=== PATIENT | male | born 1950 | race Caucasian/White ===

== ENCOUNTER 2022-06-15 01:48 | Inpatient (IN) | payer OTHER ==
[~2022-06-15] VITALS: Ht 175.3 cm; Wt 62.6 kg
[2022-06-15 01:49] VITALS: BP 141/76
--- NOTE | 2022-06-15 01:49 | NUR ---
PT PILY ALS. TAKEN TO BED 2
[2022-06-15] MEDS ORDERED: NACL 0.9% 1,000 ML IV ONE (02:00)
[2022-06-15] MEDS ORDERED: AMPICILLIN/SULBACTAM 3 GM in NACL 0.9% 100 ML IV ONE (02:00)
--- NOTE | 2022-06-15 02:01 | NUR ---
ERM MODE BEDSIDE EXAMINING PT
--- NOTE | 2022-06-15 02:06 | NUR ---
ANIMAL ATTENDANT AND XRAY AT BEDSIDE
--- NOTE | 2022-06-15 02:08 | NUR ---
72 Y/O MALE BIBA FROM [facility], C/ [facility] S/P HYPOGLYCEMIA SINCE 0100 TODAY. FACILITY FOUND PT ALOC AND BGL OF 38. [facility] GAVE UNKNOWN AMOUNT OF GLUCAGON, EMS REASSESSED BGL AT 58. SKIN IS PALE/WARM/DRY. DENIES N/V/D, COUGH, FEVER, SOB, OR CP. A/OX4, GCS-14 (DEMENTIA); NON AMBULATORY WEAK WITH DIABETIC WOUNDS TO BOTH LOWER EXTREMETIES. Addendum: 06/15/22 at 0714 by [email or web address] HX: BPH, CELLULITIS, COPD, DEMENTIA, NEUROPATHY, OSTEOARTHRITIS, DM TYPE 2, CEREBRAL INFARCTION, HYPERLIPIDEMIA
[2022-06-15 02:13] LABS: BASOPHILS % (AUTO) 0.5 % (0.0-2.0); EOSINOPHILS # (AUTO) 0.1 K/uL (0-0.4); EOSINOPHILS % (AUTO) 1.5 % (0.0-4.0); HEMOGLOBIN 11.5 g/dL (12.0-18.0); LYMPHOCYTES # (AUTO) 0.7 K/uL (2.0-11.5); LYMPHOCYTES % (AUTO) 15.3 % (20.5-51.1); MEAN CORPUSCULAR HEMOGLOBIN 30 pg (27-31); MEAN CORPUSCULAR HGB CONC 34 g/dL (33-37); MEAN CORPUSCULAR VOLUME 89.6 fL (80-94); MONOCYTES # (AUTO) 0.3 K/uL (0.8-1.0); MONOCYTES % (AUTO) 7.1 % (1.7-9.3); NEUTROPHILS # (AUTO) 3.4 K/uL (1.8-7.7); NEUTROPHILS % (AUTO) 75.6 % (42.2-75.2); PLATELET COUNT (AUTO) 142 K/uL (140-450); RED CELL DISTRIBUTION WIDTH 13.9 % (11.6-13.7); WHITE BLOOD COUNT (AUTO) 4.6 K/uL (4.8-10.8)
[2022-06-15 02:38] LABS: ALBUMIN 3.6 g/dL (3.4-5.0); ANION GAP 10.1 (8-16); ASPARTATE AMINOTRANSFERASE 26 U/L (15-37); CARBON DIOXIDE 27.2 mmol/L (21-32); CHLORIDE 104 mmol/L (98-107); GLUCOSE 116 mg/dL (74-106); POTASSIUM 4.3 mmol/L (3.5-5.1); SODIUM SERUM 137 mmol/L (136-145); TOTAL BILIRUBIN 0.3 mg/dL (0.0-1.0); UREA NITROGEN, BLOOD 21 mg/dL (7-18)
[2022-06-15 02:48] LABS: APPEARANCE,URINE CLEAR (CLEAR); BILIRUBIN,URINE NEGATIVE (NEGATIVE); BLOOD, URINE NEGATIVE (NEGATIVE); COLOR,URINE YELLOW (YELLOW); LEUKOCYTE ESTERASE ,URINE NEGATIVE (NEGATIVE); NITRITE, URINE NEGATIVE (NEGATIVE); PH,URINE 5.5 (5.0-9.0); UGLUCOSE 2+ (NEGATIVE)
[2022-06-15] MEDS ORDERED: AMPICILLIN/SULBACTAM 3 GM VIAL ONE (02:56)
[2022-06-15] MEDS ORDERED: DEXT 5% /NACL 0.9% 1,000 ML IV ONE (03:00)
[2022-06-15] MEDS ORDERED: ONDANSETRON 4 MG/2 ML VIAL IVP PRN (03:25)
[2022-06-15] MEDS ORDERED: MAGNESIUM OXIDE 400 MG TAB PO PRN (03:25)
[2022-06-15] MEDS ORDERED: ACETAMINOPHEN 325 MG TAB PO PRN (03:25)
[2022-06-15] MEDS ORDERED: KCL 20 MEQ/WATER INJ PREMIX 200 ML IV PRN (03:25)
[2022-06-15] MEDS ORDERED: VANCOMYCIN PER PHARMACY MC PRN (03:25)
[2022-06-15] MEDS ORDERED: MAG SULF 2000 MG/WATER PREMIX 50 ML IV PRN (03:25)
[2022-06-15] MEDS ORDERED: MORPHINE SULFATE 4 MG/ML SYR IVP PRN (03:25)
[2022-06-15] MEDS ORDERED: POTASSIUM CHLORIDE 10 MEQ TABER PO PRN (03:25)
[2022-06-15] MEDS ORDERED: DOCU-299 PO (03:40)
[2022-06-15] MEDS ORDERED: BISA-227 PO (03:40)
[2022-06-15] MEDS ORDERED: LID5T TP (03:40)
[2022-06-15] MEDS ORDERED: ASPI-1822 PO (03:40)
[2022-06-15] MEDS ORDERED: MULT-2253 PO (03:40)
[2022-06-15] MEDS ORDERED: PRAM0.5T4 PO (03:40)
[2022-06-15] MEDS ORDERED: IBUP-2213 PO (03:40)
[2022-06-15] MEDS ORDERED: ACET-8386 PO (03:40)
[2022-06-15] MEDS ORDERED: INSU-1331 SC (03:40)
[2022-06-15] MEDS ORDERED: INSU100S5 SQ (03:40)
[2022-06-15] MEDS ORDERED: ATOR10TA PO (03:40)
[2022-06-15] MEDS ORDERED: TERA5CAP8 PO (03:40)
[2022-06-15] MEDS ORDERED: [UNRECOGNIZED DRUG - CODE] PO (03:40)
[2022-06-15] MEDS ORDERED: ASCO500T95 PO (03:40)
[2022-06-15] MEDS ORDERED: ZINC50TA76 PO (03:40)
[2022-06-15] MEDS ORDERED: FLUT1BLS IH (03:40)
[2022-06-15] MEDS ORDERED: VANCOMYCIN 1GM/DEXT 5% PREMIX 200 ML IV SCH (03:50)
[2022-06-15] MEDS ORDERED: VANCOMYCIN 1,000 MG VIAL ONE (04:00)
--- NOTE | 2022-06-15 04:33 | NUR ---
CALLED PT'S SISTER, WHO IS [id number], TO GIVE PT UPDATE. POC: AMEE
--- NOTE | 2022-06-15 04:47 | NUR ---
EMPTIED 800ML OF CLEAR STRAW COLORED URINE
--- NOTE | 2022-06-15 06:11 | NUR ---
Patient appears to be resting comfortably in bed. Vital Signs within normal limits. Respirations even and unlabored.
--- NOTE | 2022-06-15 07:21 | NUR ---
Pt report given to CHAD ARSHAD. Transfer of care at this time.
[2022-06-15] MEDS: BLOOD GLUCOSE MONITORING 1 DEV DEV FS SCH ×3 (12:00→20:17)
[2022-06-15] MEDS: INSULIN LISPRO SLIDING SCALE 100 UNITS/ML VIAL SUBQ PRN ×2 (12:08→20:50)
[2022-06-15 13:05] VITALS: BP 137/72
--- NOTE | 2022-06-15 13:05 | NUR ---
RECEIVED REPORT FROM ED NURSE FOR CONTINUITY OF CARE. PT TRANSPORTED TO BED VIA WHEELCHAIR, AMBULATING WITH ASSISTANCE. PT IN STABLE CONDITION, A/OX4 WITH LOW VOICE. BREATHING EVEN, REGULAR, AND EVEN ON ROOM AIR. PT IS CONTINENT OF THE BOWEL AND BLADDER. 22G IV NOTED ON LEFT HAND WITH D5NS RUNNING AT 100ML/HR. PT WAS ABLE TO VERBALIZE HISTORY WELL. REDNESS, BLISTERS AND PEELING NOTED ON BILATERAL LOWER EXTREMITIES. PT CURRENTLY SHOWS NO SIGNS OF PAIN OR DISTRESS.
--- NOTE | 2022-06-15 14:16 | NUR ---
Patient will be admitted to care of DR. CABRERA. Admited to MED/SURG. Will go to room 104 B. Belongings list completed. Report to HORACIO.
--- NOTE | 2022-06-15 14:55 | NUR ---
PATIENT HAS BEEN SCREENED AND CATEGORIZED MODERATE NUTRITION RISK. PATIENT WILL BE SEEN WITHIN 3-5 DAYS OF ADMISSION. / [address]
[2022-06-15] MEDS: HYDROcodone/APAP 5/325 MG 1 TAB TAB PO PRN (15:00)
--- NOTE | 2022-06-15 15:00 | NUR ---
PT COMPLAINED OF PAIN OF 9/10 AFTER AMBULATING WITH PHYSICAL THERAPIST. PT IS ABLE TO AMBULATE STEADY WITH CANE OR QUAD-WALKER. MEDICATED PT WITH PRN NORCO.
[2022-06-15 16:00] VITALS: BP 144/64
[2022-06-15] MEDS: DEXTROSE 50% 50 ML SYR IVP PRN (16:37)
--- NOTE | 2022-06-15 16:37 | NUR ---
ASSESSED PTS BLOOD GLUCOSE, 33, NOTIFIED PRIMARY RNBAICLIO. WITH PRIMARY NURSE AT BEDSIDE, REASSESSED, BLOOD GLUCOSE 30. ORANGE JUICE AND SUGAR PROVIDED TO THE PT, NEW IV INSERTED TO RIGHT FOREARM, 20G, DEXTROSE PUSHED BY PRIMARY NURSE. REASSESSMENT OF BLOOD GLUCOSE IS 277.
--- NOTE | 2022-06-15 16:45 | NUR ---
PT STATED HE FELT HYPOGLYCEMIC TO PERINATAL BREASTFEEDING ASSISTANT. DEUCE BONILLA ASSESSED ACCUCHECK, BLOOD SUGAR READING 33. BROUGHT PT 2X APPLE JUICES WITH 3X SUGAR PACKETS FOR PT TO DRINK WHILE REASSESSING WITH DEUCE BONILLA ASSISTANCE, AND INSERTING NEW 20G IV TO RIGHT FOREARM. BLOOD SUGAR 30. MEDICATED WITH PRN D50. REASSESSED BLOOD SUGAR POST D50 PUSH, RESULT READ AT 277. PT IN STABLE CONDITION, STATING HE FELT BETTER.
--- NOTE | 2022-06-15 19:30 | NUR ---
ENDORSED TO NIGHTSHIFT NURSE FOR CONTINUITY OF CARE. PT IN STABLE CONDITION.
--- NOTE | 2022-06-15 19:35 | NUR ---
RECEIVED REPORT FROM AM NURSE FOR CONTINUITY OF CARE. PT IS STABLE A&OX3. DENIES PAIN AT THIS TIME. ON RM AIR/O2WITH NAD. RR EVEN AND UNLABORED WITH EQUAL CHEST RISE. GI INTACT. PT'S SKIN BILATERAL LOWER LEGS WITH CELLULITIS REDDENED SKIN,FLUID FILLED BLISTERS AND SCALY PATCHES ON BOTH SHINS.PT IS AMBULATORY AND CONTINENT OF BOWEL AND BLADDER. ALL SAFETY MEASURES IN PLACE. CALL LIGHT WITHIN REACH. FERNANDO;L CONTINUE TO MONITOR.
[2022-06-15] MEDS: VANCOMYCIN 1,000 MG in DEXTROSE 5% 250 ML IV SCH (20:17)
--- NOTE | 2022-06-15 21:00 | NUR ---
HS MEDS GIVEN. VANCOCIN IVPB INFUSED. RFA 20 G IV FLUSHED AND PATENT. SISTER CALLED FOR UPDATE ON PT'S CONDITION. ANSWERED HER QUESTIONS. ENCOURAGED HER TO CALL BACK DURING DAY SHIFT TO TALK WITH MD. ABOUT TREATMENT AND PLAN OF CARE SPECIFICS. AMBULATES WITH CANE GAIT STEADY. ALL SAFETY MEASURES IN PLACE. CALL LIGHT WITHIN REACH. WILL CONTINUE WITH FREQ ROUNDS.
--- NOTE | 2022-06-15 23:30 | NUR ---
PRO SOURCE SUPPLEMENT TAKEN . PT AMBULATED TO THE BATHROOM THEN BACK TO BED. NOTICED SKIN TEAR ON R ELBOW. CLEANSED AREA WITH NS, PAINTED WITH BETADINE SWAB AND COVERED WITH TAGADERM DRESSING. WILL ENDORSE TO DAY SHIFT TO F/U.
[2022-06-16] VITALS: BP 125/58
--- NOTE | 2022-06-16 00:10 | NUR ---
PT C/O RESTLESS LEGS SAYS HE TAKES MIRAPEX PO AT HOME. ENDORSE TO DAY SHIFT TO FOLLOW UP.
[2022-06-16] MEDS: HYDROcodone/APAP 5/325 MG 1 TAB TAB PO PRN ×2 (00:18→16:58)
--- NOTE | 2022-06-16 00:18 | NUR ---
C/O L HIP AND SHOULDER PAIN RECEIVED REQUESTED NORCO5/325MG TAB PO.
--- NOTE | 2022-06-16 01:30 | NUR ---
REASSESSED PAIN STATUS. NORCO EFFECTIVE. PT REPORTS PAIN DOWN TO A ONE.
[2022-06-16] MEDS: BLOOD GLUCOSE MONITORING 1 DEV DEV FS SCH ×4 (06:19→21:50)
[2022-06-16] MEDS: INSULIN LISPRO SLIDING SCALE 100 UNITS/ML VIAL SUBQ PRN ×3 (06:20→21:56)
--- NOTE | 2022-06-16 06:30 | NUR ---
BS= 276 COVERED WITH 6 UNITS HUMALOG INSULIN PER SLIDING SCALE. 0730 ENDORSED REPORT TO NURSE MCLAUGHLIN FOR CONTINUITY OF CARE. PT IS STABLE. ALL NEEDS MET THROUGHOUT THE SHIFT.
[2022-06-16 07:13] LABS: BASOPHILS % (AUTO) 0.8 % (0.0-2.0); EOSINOPHILS # (AUTO) 0.1 K/uL (0-0.4); EOSINOPHILS % (AUTO) 2.4 % (0.0-4.0); HEMATOCRIT 33.7 % (36-52); HEMOGLOBIN 11.6 g/dL (12.0-18.0); LYMPHOCYTES # (AUTO) 1.2 K/uL (2.0-11.5); LYMPHOCYTES % (AUTO) 24.6 % (20.5-51.1); MEAN CORPUSCULAR HEMOGLOBIN 31 pg (27-31); MEAN CORPUSCULAR HGB CONC 35 g/dL (33-37); MEAN CORPUSCULAR VOLUME 88.8 fL (80-94); MONOCYTES # (AUTO) 0.4 K/uL (0.8-1.0); MONOCYTES % (AUTO) 7.7 % (1.7-9.3); NEUTROPHILS # (AUTO) 3.2 K/uL (1.8-7.7); NEUTROPHILS % (AUTO) 64.5 % (42.2-75.2); PLATELET COUNT (AUTO) 142 K/uL (140-450); RED CELL DISTRIBUTION WIDTH 13.7 % (11.6-13.7); WHITE BLOOD COUNT (AUTO) 4.9 K/uL (4.8-10.8)
[2022-06-16 07:32] LABS: ALBUMIN 3.2 g/dL (3.4-5.0); ANION GAP 10.8 (8-16); ASPARTATE AMINOTRANSFERASE 37 U/L (15-37); CARBON DIOXIDE 25.8 mmol/L (21-32); CHLORIDE 107 mmol/L (98-107); CREATININE 0.9 mg/dL (0.6-1.3); GLUCOSE 251 mg/dL (74-106); MAGNESIUM 1.8 mg/dL (1.8-2.4); POTASSIUM 4.6 mmol/L (3.5-5.1); SODIUM SERUM 139 mmol/L (136-145); TOTAL BILIRUBIN 0.5 mg/dL (0.0-1.0); UREA NITROGEN, BLOOD 14 mg/dL (7-18)
[2022-06-16] MEDS: DEXTROSE 50% 50 ML SYR IVP PRN (16:43)
--- NOTE | 2022-06-16 19:30 | NUR ---
RECEIVED REPORT FROM DAY SHIFT NURSE FOR CONTINUITY OF CARE. PATIENT IS A&O X3. PATIENT IS WALKING AROUND ROOM. PATIENT'S IV IS 20G RFA, PATIENT IS CURRENTLY RUNNING NO IVF. PATIENT IS ON ROOM AIR, BREATHING IS NORMAL WITH SYMMETRICAL RISE AND FALL OF CHEST. BED IS IN LOWEST POSITION, WHEELS LOCKED, CALL LIGHT IS IN PLACE. WILL CONTINUE TO OBSERVE.
[2022-06-16 20:00] VITALS: BP 161/95
[2022-06-16] MEDS: VANCOMYCIN 1,000 MG in DEXTROSE 5% 250 ML IV SCH (20:58)
--- NOTE | 2022-06-16 21:30 | NUR ---
PRIMED AND HUNG NEW PRIMARY LINE AND BAG OF NACL 0.9% 250ML TO RUN WITH IVPB. RAN PRIMARY FOR A FEW MINUTES THEN STARTED 2100 IVPB MEDICATION TO PATIENT. AFTER STARTING IVPB PATIENT COMPLAINED OF PAIN. STOPPED IVPB AND FLUSHED IV. DETERMINED PATIENT NEEDED NEW IV INSERTED. WILL INSERT NEW IV TO RUN IVPB.
--- NOTE | 2022-06-16 21:59 | NUR ---
BS WAS 252, GAVE 6 UNITS. PATIENT IS SITTING UP IN BED. WILL CONTINUE TO OBSERVE PATIENT.
--- NOTE | 2022-06-16 22:50 | NUR ---
NEW IV WAS INSERTED BY JACK. NEW IV IS A 20G IN LFA. PREVIOUS IV IN RFA HAD ALREADY BEEN REMOVED. IV WAS RUNNING FINE. PATIENT WAS INSTRUCTED TO STAY IN BED UNTIL IV HAD FINISHED RUNNING. BEFORE EXITING THE ROOM, HEARD THE PATIENT YELL, "I'M BLEEDING". WENT OVER TO BED. PATIENT HAD GOTTEN UP TO WALK AROUND AND THE HUB WAS PULLED OUT OF IV LINE AND BLOOD WAS COMING FROM HUB. I IMMEDIATELY GRABBED SOME GAUZE FROM BEDSIDE AND CALLED FOR ASSISTANCE. SHAREE CAME TO ROOM AND ASSISTED. BLEEDING WAS STOPPED, HUB WAS REATTACHED, IV WAS RE-SECURED WITH TAPE AND GAUZE, PATIENT AND BEDDING WAS CLEANED UP FROM BLOOD. PATIENT WAS ONCE AGAIN INSTRUCTED TO NOT WALK AROUND WHILE ATTACHED TO IV. PATIENT STATED HE UNDERSTOOD AND PROCEEDED TO GET UP AND WALK TO BATHROOM. I STOPPED IV PUMP, UNHOOKED PATIENT FROM IV AND LET HIM GO TO THE BATHROOM. AFTERWARDS I RE-ATTACHED PATIENT TO IV AND WAITED A FEW MINUTES TO ENSURE HE STAY IN BED WHILE IV RUNS. WILL CONTINUE TO OBSERVE PATIENT.
--- NOTE | 2022-06-17 00:30 | NUR ---
LOOKED IN ON PATIENT. PATIENT WAS WALKING AROUND ROOM. PATIENT ASKED TO BE DISCONNECTED FROM IV. PATIENT WAS DISCONNECTED SINCE IVPB WAS DONE RUNNING AND THERE WERE NO ORDERS TO RUN A PRIMARY. PATIENT WAS GLAD TO BE DISCONNECTED AND SAID HE WOULD GO TO BED.
--- NOTE | 2022-06-17 02:30 | NUR ---
LOOKED IN ON PATIENT. PATIENT WAS SLEEPING. BREATHING WAS NORMAL WITH SYMMETRICAL RISE AND FALL OF CHEST. BED WAS IN LOWEST POSITION, WHEELS LOCKED, CALL LIGHT IN REACH. WILL CONTINUE TO OBSERVE PATIENT.
[2022-06-17 04:00] VITALS: BP 155/93
--- NOTE | 2022-06-17 04:30 | NUR ---
LOOKED IN ON PATIENT. PATIENT WAS SLEEPING. NO IVF IS RUNNING. PATIENT IS ON ROOM AIR. BREATHING IS NORMAL WITH SYMMETRICAL RISE AND FALL OF CHEST. WILL CONTINUE TO OBSERVE PATIENT.
[2022-06-17] MEDS: BLOOD GLUCOSE MONITORING 1 DEV DEV FS SCH ×3 (07:00→16:21)
--- NOTE | 2022-06-17 07:01 | NUR ---
BS WAS DONE. BS WAS 110, NO COVERAGE WAS NEEDED. PATIENT WAS SLEEPING.
[2022-06-17 07:14] LABS: BASOPHILS % (AUTO) 0.6 % (0.0-2.0); EOSINOPHILS # (AUTO) 0.2 K/uL (0-0.4); EOSINOPHILS % (AUTO) 2.4 % (0.0-4.0); HEMATOCRIT 32.3 % (36-52); HEMOGLOBIN 11.2 g/dL (12.0-18.0); LYMPHOCYTES # (AUTO) 1.2 K/uL (2.0-11.5); LYMPHOCYTES % (AUTO) 18.2 % (20.5-51.1); MEAN CORPUSCULAR HEMOGLOBIN 31 pg (27-31); MEAN CORPUSCULAR HGB CONC 35 g/dL (33-37); MEAN CORPUSCULAR VOLUME 88.6 fL (80-94); MONOCYTES # (AUTO) 0.5 K/uL (0.8-1.0); MONOCYTES % (AUTO) 7.1 % (1.7-9.3); NEUTROPHILS # (AUTO) 4.8 K/uL (1.8-7.7); NEUTROPHILS % (AUTO) 71.7 % (42.2-75.2); PLATELET COUNT (AUTO) 153 K/uL (140-450); RED BLOOD CELL COUNT(AUTO) 3.65 MIL/uL (4.20-6.10); RED CELL DISTRIBUTION WIDTH 13.7 % (11.6-13.7); WHITE BLOOD COUNT (AUTO) 6.7 K/uL (4.8-10.8)
--- NOTE | 2022-06-17 07:30 | NUR ---
RECEIVED REPORT FROM NIGHTSHIFT NURSE. PT A/O X 2-3. FORGETFUL AT TIMES. DENIES PAIN. NO SOB OR RESPIRATORY DISTRESS. ON RA. BRP. AMBULATORY. IV TO SL. BLE REDNESS. NEEDS ALL MET AT THIS TIME. SAFETY MEASURES IN PLACE.
--- NOTE | 2022-06-17 07:45 | NUR ---
ENDORSED TO DAY SHIFT NURSE FOR CONTINUITY OF CARE. PATIENT IS STABLE.
[2022-06-17 08:00] VITALS: BP 107/64
[2022-06-17 08:11] LABS: ALBUMIN 3.2 g/dL (3.4-5.0); ANION GAP 13.2 (8-16); ASPARTATE AMINOTRANSFERASE 26 U/L (15-37); CARBON DIOXIDE 24.8 mmol/L (21-32); CHLORIDE 108 mmol/L (98-107); CREATININE 0.9 mg/dL (0.6-1.3); GLUCOSE 96 mg/dL (74-106); MAGNESIUM 1.6 mg/dL (1.8-2.4); SODIUM SERUM 142 mmol/L (136-145); TOTAL BILIRUBIN 0.6 mg/dL (0.0-1.0); UREA NITROGEN, BLOOD 15 mg/dL (7-18)
[2022-06-17] MEDS: INSULIN LISPRO SLIDING SCALE 100 UNITS/ML VIAL SUBQ PRN (11:07)
[2022-06-17] MEDS: HYDROcodone/APAP 5/325 MG 1 TAB TAB PO PRN (11:13)
[2022-06-17] MEDS ORDERED: DOXY-690 PO (12:00)
[2022-06-17] MEDS ORDERED: INSU-1331 SC (12:00)
--- NOTE | 2022-06-17 13:00 | NUR ---
DRESSING DONE PER MD ORDER. PT TOLERATED WELL AND DENIES PAIN AT THIS TIME. NO SOB. RESTING COMFORTABLY.
--- NOTE | 2022-06-17 13:17 | NUR ---
PT. ADMITTED WITH BLE CELLULITIS AND BLISTERING SKIN, TODAY ASSESSMENT BLE STASIS ULCER, NO ERYTHEMA, NO EDEMA, PREVIOUS BLISTERING SKIN OPEN WITH MULTIPLE PARTIAL THICKNESS SKIN LOSS TO ANTERIOR AND POSTERIOR WITH LARGEST TO LEFT POSTERIOR 1.5X1X0.1CM, MOIST, NO ODOR,JULISSA-WOUND SKIN DRY FLAKY SKIN. PAIN 0/10. POC DISCUSSED WITH PT. PT. VERBALIZES UNDERSTANDING. POC DISCUSSED WITH NURSE BAILEY WHO'S COVERING FOR RHYS,ON AT THIS TIME. POC DISCUSSED WITH PAT, CASE MANAGEMENT. RECOMMENDATIONS: -CLEANSE BLE WITH NS, PAT DRY, APPLY XEROFORM DRESSING COVER WITH DRY DRESSING AND WRAP WITH KERLIX ROLL QD AND PRN IF SOILING.
--- NOTE | 2022-06-17 13:20 | NUR ---
DC PLANNING: ERNESTINE RECEIVED ORDERS FOR THE PATIENT TO RETURN TO [facility] SNF. ERNESTINE SPOKE WITH WARD AT [facility] TODAY REGARDING POTENTIAL DC, HE STATES PATIENT WILL RETURN NURSING HOME LEVEL OF CARE AND THAT DOESN'T COVER TRANSPORT. ERNESTINE THEN SPOKE WITH GUILLERMINA FROM [facility] WHO STATES SHE WILL CALL WARD FOR [facility] FOR SKILLED LEVEL BECAUSE OF WOUND CARE TO HIS STASIS ULCER. ERNESTINE CALLED JEISON TO DO A WOUND CARE CONSULT, JEISON SAW THE PATIENT AND WILL ENTER ORDERS FOR WOUND CARE, ERNESTINE WILL SEND TO [facility]. ERNESTINE WILL FOLLOW FOR BALJINDER PATEL MD TO FOLLOW TO SET UP TRANSPORT BACK TO SNF. ERNESTINE SPOKE WITH THE PATIENT AT BEDSIDE TO EXPLAIN PROCESS FOR DISCHARGE AND OFFERED TO CALL HIS SISTER, HE STATES HE WILL CALL HER AND ERNESTINE DOES NOT NEED TO DO THIS. ERNESTINE WILL FOLLOW.
[2022-06-17] MEDS ORDERED: NON ADHERENT DRESSING TP PRN (13:25)
[2022-06-17] MEDS ORDERED: NON ADHERENT DRESSING TP SCH (13:30)
--- NOTE | 2022-06-17 15:26 | NUR ---
DC PLANNING HILDA OUTREACHED TO [facility] TO SET UP TRANSPORTATION FOR PATIENT TO RETURN TO [facility]. SW WAS TRANSFERRED TO [employer] ([phone]) WHO WILL BE PROVIDING TRANSPORT. HILDA SPOKE WITH NIKKI ([employer]) WHO SET UP TRANSPORT AND REPORTED THAT PATIENT WILL BE PICKED UP AT 6:50PM. HILDA NOTIFIED PATIENTS NURSE AND WAS MADE AWARE OF SUPERIOR COURT CLERK TIME.
[2022-06-17 16:00] VITALS: BP 99/59
--- NOTE | 2022-06-17 16:01 | NUR ---
REPORT GIVEN TO TORIBIO FROM [facility]. PT WILL BE GOING TO ROM 4A. PICKUP TIME 1850 BY [employer].
[2022-06-17 17:05] VITALS: BP 99/59
--- NOTE | 2022-06-17 18:51 | NUR ---
PHYSICAL THERAPY CO-SIGN The Physical Therapy Progress Notes documented by Torch Heater have been reviewed. Reviewed/Co-Signed by: Dedra Blackwell PT Documentation Done by:JUAN ORTEGA PTA REC: SNF Addendum: 06/17/22 at 1851 by Dedra Blackwell PT Amended: Links added. Addendum: 06/17/22 at 1851 by Dedra Blackwell PT 06/17/22 [id number]=[id number]
--- NOTE | 2022-06-17 19:00 | NUR ---
DISCHARGE INSTRUCTIONS GIVEN. PT VERBALIZED UNDERSTANDING. IV DISCONTINUED, CATHETER INTACT, NO ACTIVE BLEEDING. PT STABLE. PT TRANSPORTED OUT BY [facility] [employer] [facility].
== END 2022-06-17 19:07 | DRG 602 ==
LOC: MED 01:48 → MMU 03:27 → MTU 12:26
PROVIDERS: ADMIT Internal Medicine; ATTEND Internal Medicine
DX: L03.116 Cellulitis of left lower limb (principal); G93.41 Metabolic encephalopathy; E11.649 Type 2 diabetes mellitus with hypoglycemia without coma; L03.115 Cellulitis of right lower limb; E11.42 Type 2 diabetes mellitus with diabetic polyneuropathy; J44.9 Chronic obstructive pulmonary disease, unspecified; Z20.822 Contact with and (suspected) exposure to COVID-19; E78.5 Hyperlipidemia, unspecified; N40.0 Benign prostatic hyperplasia without lower urinary tract symptoms; I10 Essential (primary) hypertension; Z79.4 Long term (current) use of insulin; Z79.899 Other long term (current) drug therapy
CPT/HCPCS: 36415; 71045; 80053; 81003; 82948; 83605; 83735; 85025; 87040; 87081; 87086; 93005; 93925; 96361; 96365; 97116; 97163-GP; 97530; 99285; J0295; J1815; J3370; J7030; J7060; Q0092

== ENCOUNTER 2022-07-24 07:50 | Emergency (ER) | payer OTHER ==
[~2022-07-24] VITALS: Ht 167.6 cm; Wt 66.7 kg
[~2022-07-24 07:50] MED LIST: ACET-8386 PO; ASCO500T95 PO; ASPI-1822 PO; ATOR10TA PO; BISA-227 PO; DOCU-299 PO; DOXY-690 PO; FLUT1BLS IH; IBUP-2213 PO; INSU-1331 SC; INSU100S5 SQ; LID5T TP; MULT-2253 PO; PRAM0.5T4 PO; TERA5CAP8 PO; ZINC50TA76 PO; [UNRECOGNIZED DRUG - CODE] PO
--- NOTE | 2022-07-24 07:50 | NUR ---
piero from [facility] d/t aloc noted at facility with initial BS of 22. EMS gave d10 and BS came back up to 192 at scene and patient became alert to baseline. pt aaox3 at triage. denies any complaints at this time. BS at triage 138. aaox4. PMH: COPD, DM, dementia, venous lower leg ulcer
--- NOTE | 2022-07-24 07:50 | NUR ---
PILY ALS TO ER BED 10
[2022-07-24 07:55] VITALS: BP 143/90
[2022-07-24] MEDS ORDERED: NACL 0.9% 1,000 ML IV ONE (08:00)
[2022-07-24 08:36] LABS: BASOPHILS % (AUTO) 0.6 % (0.0-2.0); EOSINOPHILS # (AUTO) 0.1 K/uL (0-0.4); EOSINOPHILS % (AUTO) 0.9 % (0.0-4.0); HEMATOCRIT 33.6 % (36-52); HEMOGLOBIN 11.4 g/dL (12.0-18.0); LYMPHOCYTES # (AUTO) 0.7 K/uL (2.0-11.5); LYMPHOCYTES % (AUTO) 10.2 % (20.5-51.1); MEAN CORPUSCULAR HEMOGLOBIN 31 pg (27-31); MEAN CORPUSCULAR HGB CONC 34 g/dL (33-37); MEAN CORPUSCULAR VOLUME 89.6 fL (80-94); MONOCYTES # (AUTO) 0.4 K/uL (0.8-1.0); MONOCYTES % (AUTO) 5.4 % (1.7-9.3); NEUTROPHILS # (AUTO) 5.5 K/uL (1.8-7.7); NEUTROPHILS % (AUTO) 82.9 % (42.2-75.2); PLATELET COUNT (AUTO) 126 K/uL (140-450); RED BLOOD CELL COUNT(AUTO) 3.75 MIL/uL (4.20-6.10); RED CELL DISTRIBUTION WIDTH 13.8 % (11.6-13.7); WHITE BLOOD COUNT (AUTO) 6.6 K/uL (4.8-10.8)
[2022-07-24] MEDS ORDERED: DEXTROSE 50% 50 ML SYR IVP ONE ×2 (08:43→08:45)
[2022-07-24 10:04] LABS: ALBUMIN 3.2 g/dL (3.4-5.0); CREATININE 0.9 mg/dL (0.6-1.3); GLUCOSE 83 mg/dL (74-106); UREA NITROGEN, BLOOD 25 mg/dL (7-18)
[2022-07-24 10:24] LABS: ASPARTATE AMINOTRANSFERASE 4 U/L (15-37)
[2022-07-24 10:27] LABS: ANION GAP 17.5 (8-16); CARBON DIOXIDE 20.8 mmol/L (21-32); CHLORIDE 107 mmol/L (98-107); POTASSIUM 3.3 mmol/L (3.5-5.1); SODIUM SERUM 142 mmol/L (136-145)
[2022-07-24 10:37] LABS: BILIRUBIN,URINE NEGATIVE (NEGATIVE); BLOOD, URINE TRACE-I (NEGATIVE); COLOR,URINE YELLOW (YELLOW); LEUKOCYTE ESTERASE ,URINE NEGATIVE (NEGATIVE); NITRITE, URINE NEGATIVE (NEGATIVE); UGLUCOSE 3+ (NEGATIVE)
--- NOTE | 2022-07-24 10:39 | NUR ---
LIVING SUPERVISOR AT BEDSIDE FOR REPEAT BLOOD DRAW
[2022-07-24 10:45] LABS: APPEARANCE,URINE HAZY (CLEAR)
[2022-07-24 11:38] LABS: RBC,URINE 0-5 /HPF (0-5); WBC,URINE 0-5 /HPF (0-5)
[2022-07-24 11:39] LABS: YEAST,URINE Few /HPF (None Seen)
--- NOTE | 2022-07-24 12:30 | NUR ---
spoke with Nay, GUNNER, and sister. per Nay, will come hop picker patient and drive back to [facility]. gave report to Chao at [facility] for patient's dc and will be coming back. per chao, will meet patient by car for escort back to room.
[2022-07-24] MEDS ORDERED: MORPHINE SULFATE 2 MG/ML SYR IVP SCH (13:10)
--- NOTE | 2022-07-24 14:21 | NUR ---
Patient discharged with v/s stable. Written and verbal after care instructions given and explained. Patient verbalized understanding. Ambulatory with to car. All questions addressed prior to discharge. Advised to follow up with PMD.
[2022-07-24 14:22] VITALS: BP 121/68
== END 2022-07-24 14:23 | disposition home or self-care (01) ==
LOC: MED 07:50
DX: E11.649 Type 2 diabetes mellitus with hypoglycemia without coma (principal); Z20.822 Contact with and (suspected) exposure to COVID-19; R41.82 Altered mental status, unspecified; I10 Essential (primary) hypertension; F03.90 Unspecified dementia, unspecified severity, without behavioral disturbance, psychotic disturbance, mood disturbance, and anxiety; Z86.73 Personal history of transient ischemic attack (TIA), and cerebral infarction without residual deficits; Z79.4 Long term (current) use of insulin; Z79.899 Other long term (current) drug therapy
CPT/HCPCS: 36415; 80053; 81001; 84484; 85025; 87086; 87426; 93005; 96361; 96374; 96375; 99284; J2270

== ENCOUNTER 2022-10-23 06:10 | Emergency (ER) | payer OTHER ==
[~2022-10-23] VITALS: Ht 170.2 cm; Wt 59.9 kg
[~2022-10-23 06:10] MED LIST changes: -ACET-8386 PO; +ACET-8905 PO
[2022-10-23 06:13] VITALS: BP 141/70
--- NOTE | 2022-10-23 06:16 | NUR ---
PT PILY TO ER BED 07 ALS
[2022-10-23] MEDS ORDERED: NACL 0.9% 1,000 ML IV ONE ×2 (06:20→07:20)
[2022-10-23] MEDS ORDERED: ACETAMINOPHEN 325 MG TAB PO ONE (06:20)
--- NOTE | 2022-10-23 06:26 | NUR ---
X-RAY AT BEDSIDE
--- NOTE | 2022-10-23 06:47 | NUR ---
Patient lying in bed, confused, chest rise and fall symmetrical, no c/o pain or s/s of distress, started on 2L NC.
[2022-10-23 07:33] LABS: BASOPHILS % (AUTO) 0.1 % (0.0-2.0); EOSINOPHILS % (AUTO) 0.3 % (0.0-4.0); HEMATOCRIT 30.7 % (36-52); HEMOGLOBIN 10.6 g/dL (12.0-18.0); LYMPHOCYTES # (AUTO) 0.6 K/uL (2.0-11.5); LYMPHOCYTES % (AUTO) 5.6 % (20.5-51.1); MEAN CORPUSCULAR HEMOGLOBIN 31 pg (27-31); MEAN CORPUSCULAR HGB CONC 35 g/dL (33-37); MEAN CORPUSCULAR VOLUME 88.8 fL (80-94); MONOCYTES # (AUTO) 0.6 K/uL (0.8-1.0); NEUTROPHILS # (AUTO) 9.4 K/uL (1.8-7.7); PLATELET COUNT (AUTO) 123 K/uL (140-450); RED BLOOD CELL COUNT(AUTO) 3.46 MIL/uL (4.20-6.10); RED CELL DISTRIBUTION WIDTH 13.5 % (11.6-13.7); WHITE BLOOD COUNT (AUTO) 10.7 K/uL (4.8-10.8)
--- NOTE | 2022-10-23 07:37 | NUR ---
Change of shift report given to AM shift Nurse Dedra. AM shift Nurse Dedra verbalized understanding, no further questions.
--- NOTE | 2022-10-23 07:37 | NUR ---
REPORT RECEIVED FROM ROBYN BONILLA. ASSUMED CARE AT THIS TIME
[2022-10-23 07:47] LABS: ANION GAP 12.3 (8-16); ASPARTATE AMINOTRANSFERASE 22 U/L (15-37); CARBON DIOXIDE 24.6 mmol/L (21-32); CHLORIDE 104 mmol/L (98-107); CREATININE 0.9 mg/dL (0.6-1.3); GLUCOSE 134 mg/dL (74-106); POTASSIUM 3.9 mmol/L (3.5-5.1); SODIUM SERUM 137 mmol/L (136-145); TOTAL BILIRUBIN 0.5 mg/dL (0.0-1.0); UREA NITROGEN, BLOOD 22 mg/dL (7-18)
--- NOTE | 2022-10-23 08:25 | NUR ---
pt swabbed for covid(yecenia) and flu. walked to lab
--- NOTE | 2022-10-23 08:27 | NUR ---
PT WHEELCHAIR ASSISTED TO RESTROOM
--- NOTE | 2022-10-23 08:37 | NUR ---
WHEELCHAIR ASSISTED BACK TO ROOM
[2022-10-23 10:18] LABS: APPEARANCE,URINE HAZY (CLEAR); BILIRUBIN,URINE NEGATIVE (NEGATIVE); BLOOD, URINE TRACE-I (NEGATIVE); COLOR,URINE YELLOW (YELLOW); LEUKOCYTE ESTERASE ,URINE 1+ (NEGATIVE); NITRITE, URINE NEGATIVE (NEGATIVE); PH,URINE 5.5 (5.0-9.0); UGLUCOSE NEGATIVE (NEGATIVE)
[2022-10-23 10:39] LABS: WBC,URINE 0-5 /HPF (0-5)
[2022-10-23] MEDS ORDERED: CEPH-588 PO (11:34)
--- NOTE | 2022-10-23 11:46 | NUR ---
SISTER DANNI CONTACTED AND MADE AWARE OF D/C. SISTER UNAVAILABLE FOR TX BACK.
--- NOTE | 2022-10-23 13:15 | NUR ---
BRICE WEIR CONTACTED , MADE AWARE OF D/C AND PENDING TX
--- NOTE | 2022-10-23 13:20 | NUR ---
IV removed, catheter intact and site benign. Applied folded 4x4 gauze and tape to stop bleeding.
[2022-10-23 13:23] VITALS: BP 111/68
--- NOTE | 2022-10-23 13:23 | NUR ---
Patient discharged with v/s stable. Written and verbal after care instructions FOR UTI given and explained. Patient alert, oriented and verbalized understanding of instructions. Wheel Chair Assisted with to car. All questions addressed prior to discharge. ID band removed. Patient advised to follow up with PMD. Rx of KELFEX given. . Opportunity to ask questions provided and answered. Addendum: 10/23/22 at 1325 by PHSEP PROVIDED W/ CHRISTINA RIDE BACK TO FACILITY. BRICE WEIR CONTACTED AND MADE AWARE OF ETA. SPOKE Ander/ TADEO
--- NOTE | 2022-10-23 13:43 | NUR ---
The patient's care was reviewed and supervised by Indira Chisholm, RN, RN.
== END 2022-10-23 13:23 | disposition home or self-care (01) ==
LOC: MED 06:10
DX: N39.0 Urinary tract infection, site not specified (principal); Z20.822 Contact with and (suspected) exposure to COVID-19; R41.82 Altered mental status, unspecified; E11.9 Type 2 diabetes mellitus without complications; F03.90 Unspecified dementia, unspecified severity, without behavioral disturbance, psychotic disturbance, mood disturbance, and anxiety; I10 Essential (primary) hypertension; Z79.899 Other long term (current) drug therapy; Z79.4 Long term (current) use of insulin; Z79.82 Long term (current) use of aspirin
CPT/HCPCS: 36415; 71045; 80053; 81001; 83605; 85025; 87086; 87426; 87804; 96360; 96361; 99285; Q0092

== ENCOUNTER 2023-03-30 08:58 | Inpatient (IN) | payer MEDICARE, MEDICAID ==
[~2023-03-30] VITALS: Ht 165.1 cm; Wt 72.1 kg
[2023-03-30 08:58] VITALS: BP 137/64
[~2023-03-30 08:58] MED LIST changes: +CEPH-588 PO; -INSU-1331 SC; +INSU100I5 SC
--- NOTE | 2023-03-30 08:58 | NUR ---
PILY ALS TO ER BED 12
[2023-03-30] MEDS ORDERED: ASPIRIN 81 MG TAB.CHEW PO ONE (09:15)
--- NOTE | 2023-03-30 09:25 | NUR ---
ASSUMED PATIENT CARE, NURSING ASSESSMENT COMPLETED.
[2023-03-30 09:49] LABS: BASOPHILS % (AUTO) 0.5 % (0.0-2.0); EOSINOPHILS % (AUTO) 0.3 % (0.0-4.0); HEMATOCRIT 32.8 % (36-52); HEMOGLOBIN 11.1 g/dL (12.0-18.0); LYMPHOCYTES # (AUTO) 0.5 K/uL (2.0-11.5); MEAN CORPUSCULAR HEMOGLOBIN 30 pg (27-31); MEAN CORPUSCULAR HGB CONC 34 g/dL (33-37); MEAN CORPUSCULAR VOLUME 87.1 fL (80-94); MONOCYTES # (AUTO) 0.3 K/uL (0.8-1.0); MONOCYTES % (AUTO) 4.7 % (1.7-9.3); NEUTROPHILS # (AUTO) 6.3 K/uL (1.8-7.7); NEUTROPHILS % (AUTO) 87.5 % (42.2-75.2); PLATELET COUNT (AUTO) 178 K/uL (140-450); RED BLOOD CELL COUNT(AUTO) 3.76 MIL/uL (4.20-6.10); RED CELL DISTRIBUTION WIDTH 14.7 % (11.6-13.7); WHITE BLOOD COUNT (AUTO) 7.2 K/uL (4.8-10.8)
[2023-03-30 10:19] LABS: ALBUMIN 3.3 g/dL (3.4-5.0); ANION GAP 12.1 (8-16); ASPARTATE AMINOTRANSFERASE 35 U/L (15-37); CARBON DIOXIDE 24.9 mmol/L (21-32); CHLORIDE 99 mmol/L (98-107); CREATININE 0.9 mg/dL (0.6-1.3); GLUCOSE 167 mg/dL (74-106); SODIUM SERUM 132 mmol/L (136-145); TOTAL BILIRUBIN 0.4 mg/dL (0.0-1.0); UREA NITROGEN, BLOOD 19 mg/dL (7-18)
[2023-03-30 10:23] LABS: LIPASE 8 U/L (73-393)
[2023-03-30] MEDS ORDERED: PIPERACILLIN/TAZOBACTAM 3.375 GM in DEXTROSE 5% 50 ML IV ONE (10:25)
[2023-03-30] MEDS ORDERED: PIPERACILLIN/TAZOBACTAM 3.375 GM VIAL IV ONE (10:39)
--- NOTE | 2023-03-30 12:00 | NUR ---
PLAN: TRANSFER TO [facility] FOR CARDIOTHORACIC CONSULTATION. RACKMAN INITIATING CALLS FOR PLACEMENT.
--- NOTE | 2023-03-30 13:31 | NUR ---
MOVED TO ER BED 11
--- NOTE | 2023-03-30 19:06 | NUR ---
DISPO AND MEDICAL DECISION MAKING. PER CARDIO THORACIC SURGEON FROM I PATIENT IS OK TO ADMIT HERE FOR FURTHER CARE AND MANAGEMENT. UPDATED PATIENT'S POA DANNI ABOUT PLAN OF CARE.
--- NOTE | 2023-03-30 19:45 | NUR ---
PT RESTING IN BED, CONFUSED, CHEST RISING AND FALLS SYMETRICAL, NO C/O PAIN OR S/S DISTRESS, PT ON MONITOR
--- NOTE | 2023-03-30 20:54 | NUR ---
Urinal emptied, 300mL, yellow/clear.
[2023-03-30 20:59] LABS: APPEARANCE,URINE CLEAR (CLEAR); BILIRUBIN,URINE NEGATIVE (NEGATIVE); BLOOD, URINE TRACE-I (NEGATIVE); COLOR,URINE YELLOW (YELLOW); LEUKOCYTE ESTERASE ,URINE NEGATIVE (NEGATIVE); NITRITE, URINE NEGATIVE (NEGATIVE); PH,URINE 5.5 (5.0-9.0); UGLUCOSE NEGATIVE (NEGATIVE)
--- NOTE | 2023-03-30 21:00 | NUR ---
Left lower extremity wound documented. Wound picture taken by AM shift Nurse Delvis BONILLA. Wound picture in chart.
--- NOTE | 2023-03-30 21:10 | NUR ---
PT RESTING IN BED, CONFUSED, CHEST RISING AND FALLS SYMETRICAL, NO C/O PAIN OR S/S DISTRESS, PT ON MONITOR
[2023-03-30] MEDS ORDERED: ONDANSETRON 4 MG/2 ML VIAL IVP PRN (21:45)
[2023-03-30] MEDS ORDERED: HYDROcodone/APAP 5/325 MG 1 TAB TAB PO PRN (21:45)
[2023-03-30] MEDS ORDERED: DEXTROSE 50% 50 ML SYR IVP PRN (22:00)
--- NOTE | 2023-03-30 22:59 | NUR ---
Patient will be admitted to care of Dr. Sal. Admited to Telemetry. Will go to room 110B. Belongings list completed. Report to CONSTANTINO BONILLA. CONSTANTINO BONILLA verbalized understanding of report, no further questions.
--- NOTE | 2023-03-30 23:00 | NUR ---
PT WAS TRANSPORTED VIA GURNEY FROM ER. PT IS AAOX2 WITH FORGETFULNESS. PT IS ON NC 2L SATING 93%. PT NOT IN ANY DISTRESS. PT DOES NOT REMEMBER WHY HE CAME TO THE HOSPITAL. CAME IN FOR CHEST PAIN. DENIES ANY CHEST PAIN AT THIS TIME. PT HAS IV ON LEFT AC 20 GAUGE SALINE LOCK. PLAN OF CARE DISCUSSED. WILL CONTINUE TO MONITOR THE PT.
[2023-03-31] VITALS: BP 96/49
--- NOTE | 2023-03-31 01:40 | NUR ---
OBSERVED PT. PT REMOVED NC. PT SATING IN 80S ON RA. PUT NC CANNULA BACK ON AND SATURATION JUMP OVER 90S QUICKLY. EDUCATED PT TO KEEP NC ON.
[2023-03-31] MEDS: HYDROcodone/APAP 5/325 MG 1 TAB TAB PO PRN ×2 (03:25→09:15)
--- NOTE | 2023-03-31 03:25 | NUR ---
PT STATED HE TAKES NORCO AT HOME. PT COMPLAINING OF HIP PAIN AND LOWER BACK PAIN. 6/10 PAIN. PRN NORCO WAS GIVEN. NO OTHER COMPLAINS. WILL CONTINUE TO MONITOR THE PT.
[2023-03-31 04:00] VITALS: BP 103/52
[2023-03-31] MEDS: BLOOD GLUCOSE MONITORING 1 DEV DEV FS SCH ×4 (06:37→20:11)
[2023-03-31] MEDS: INSULIN LISPRO SLIDING SCALE 100 UNITS/ML VIAL SUBQ PRN ×3 (06:37→20:11)
--- NOTE | 2023-03-31 07:05 | NUR ---
ENDORSED PT TO DAY SHIFT SHIFT RN FOR CONTINUITY OF CARE PT IS STABLE.
[2023-03-31 07:12] LABS: ANION GAP 10.5 (8-16); CARBON DIOXIDE 26.1 mmol/L (21-32); CHLORIDE 100 mmol/L (98-107); CREATININE 0.9 mg/dL (0.6-1.3); GLUCOSE 154 mg/dL (74-106); POTASSIUM 3.6 mmol/L (3.5-5.1); SODIUM SERUM 133 mmol/L (136-145); UREA NITROGEN, BLOOD 18 mg/dL (7-18)
[2023-03-31 07:25] LABS: BASOPHILS % (AUTO) 0.2 % (0.0-2.0); EOSINOPHILS # (AUTO) 0.1 K/uL (0-0.4); EOSINOPHILS % (AUTO) 0.7 % (0.0-4.0); HEMATOCRIT 28.8 % (36-52); HEMOGLOBIN 9.8 g/dL (12.0-18.0); LYMPHOCYTES # (AUTO) 1.8 K/uL (2.0-11.5); LYMPHOCYTES % (AUTO) 10.8 % (20.5-51.1); MEAN CORPUSCULAR HEMOGLOBIN 30 pg (27-31); MEAN CORPUSCULAR HGB CONC 34 g/dL (33-37); MEAN CORPUSCULAR VOLUME 86.9 fL (80-94); MONOCYTES # (AUTO) 0.9 K/uL (0.8-1.0); MONOCYTES % (AUTO) 5.2 % (1.7-9.3); NEUTROPHILS # (AUTO) 13.7 K/uL (1.8-7.7); NEUTROPHILS % (AUTO) 83.1 % (42.2-75.2); PLATELET COUNT (AUTO) 152 K/uL (140-450); RED BLOOD CELL COUNT(AUTO) 3.31 MIL/uL (4.20-6.10); RED CELL DISTRIBUTION WIDTH 14.2 % (11.6-13.7); WHITE BLOOD COUNT (AUTO) 16.5 K/uL (4.8-10.8)
[2023-03-31 08:00] VITALS: BP 101/47
--- NOTE | 2023-03-31 08:52 | NUR ---
PATIENT HAS BEEN SCREENED AND CATEGORIZED MODERATE NUTRITION RISK. PATIENT WILL BE SEEN WITHIN 3-5 DAYS OF ADMISSION. 04/02/23-04/04/[address]
[2023-03-31] MEDS: AZITHROMYCIN 250 MG TAB PO SCH (09:05)
[2023-03-31] MEDS: ATORVASTATIN 20 MG TAB PO SCH (09:05)
[2023-03-31] MEDS: ASPIRIN 81 MG TAB.CHEW PO SCH (09:05)
[2023-03-31] MEDS: ENOXAPARIN 40 MG/0.4 ML SYR SUBQ SCH (09:06)
--- NOTE | 2023-03-31 10:48 | NUR ---
POWER OF GRIND OPERATOR, AMEE, PATIENT'S SISTER, WOULD LIKE AN UPDATE FROM MD IF POSSIBLE. HER PHONE NUMBER IS [phone].
[2023-03-31 12:00] VITALS: BP 96/51
[2023-03-31 16:00] VITALS: BP 126/63
--- NOTE | 2023-03-31 19:30 | NUR ---
RECEIVED REPORT FROM DAY SHIFT RN FOR CONTINUITY OF CARE. PT IS AWAKE AND ALERT. SITTING BY BEDSIDE. PT HAS LEFT AC 20 GAUGE. SALINE LOCK. PT IS ON 2L NC. POC DISCUSSED. WILL CONTINUE TO MONITOR THE PT.
[2023-03-31 20:00] VITALS: BP 141/55
[2023-03-31] MEDS: PRAMIPEXOLE 0.5 MG TAB PO SCH (20:08)
--- NOTE | 2023-03-31 20:37 | NUR ---
PT WAS CLEANED AND CHANGED. TOLERATED IT WELL. PT HAS NO COMPLAINS. WILL CONTINUE TO MONITOR THE PT.
[2023-04-01] VITALS: BP 113/60
--- NOTE | 2023-04-01 00:30 | NUR ---
OBSERVED PT. PT IS SLEEPING COMFORTABLY IN BED. NOT IN ANY DISTRESS. BREATHING EVEN AND UNLABORED. BED AT HE LOWEST POSITION. HEAD OF THE BED RAISED. WILL CONTINUE TO MONITOR THE PT.
[2023-04-01 04:00] VITALS: BP 108/67
--- NOTE | 2023-04-01 04:10 | NUR ---
VITAL SIGNS TAKEN AND STABLE. PT RESTING IN BED. NOT IN ANY DISTRESS. VISIBLE RISE AND CHEST FALL. SAFETY MEASURES TAKEN. WILL CONTINUE TO MONITOR THE PT.
[2023-04-01] MEDS: BLOOD GLUCOSE MONITORING 1 DEV DEV FS SCH ×4 (06:34→20:28)
[2023-04-01] MEDS: INSULIN LISPRO SLIDING SCALE 100 UNITS/ML VIAL SUBQ PRN ×4 (06:34→20:28)
[2023-04-01 07:02] LABS: ANION GAP 11.2 (8-16); CHLORIDE 98 mmol/L (98-107); CREATININE 0.8 mg/dL (0.6-1.3); GLUCOSE 147 mg/dL (74-106); POTASSIUM 4.2 mmol/L (3.5-5.1); SODIUM SERUM 130 mmol/L (136-145); UREA NITROGEN, BLOOD 18 mg/dL (7-18)
--- NOTE | 2023-04-01 07:05 | NUR ---
RECEIVED REPORT FROM FONDANT MACHINE OPERATOR NURSE FOR CONTINUITY OF CARE. PT STABLE AT THIS TIME.
--- NOTE | 2023-04-01 07:07 | NUR ---
ENDORSED PT TO DAY SHIFT RN FOR CONTINUITY OF CARE. PT IS STABLE.
[2023-04-01 07:40] LABS: BASOPHILS % (AUTO) 0.3 % (0.0-2.0); EOSINOPHILS # (AUTO) 0.5 K/uL (0-0.4); EOSINOPHILS % (AUTO) 3.6 % (0.0-4.0); HEMATOCRIT 31.4 % (36-52); HEMOGLOBIN 10.6 g/dL (12.0-18.0); LYMPHOCYTES # (AUTO) 1.8 K/uL (2.0-11.5); LYMPHOCYTES % (AUTO) 13.3 % (20.5-51.1); MEAN CORPUSCULAR HEMOGLOBIN 29 pg (27-31); MEAN CORPUSCULAR HGB CONC 34 g/dL (33-37); MEAN CORPUSCULAR VOLUME 87.1 fL (80-94); MONOCYTES # (AUTO) 0.8 K/uL (0.8-1.0); NEUTROPHILS # (AUTO) 10.7 K/uL (1.8-7.7); NEUTROPHILS % (AUTO) 76.8 % (42.2-75.2); PLATELET COUNT (AUTO) 158 K/uL (140-450); RED BLOOD CELL COUNT(AUTO) 3.61 MIL/uL (4.20-6.10); RED CELL DISTRIBUTION WIDTH 14.6 % (11.6-13.7); WHITE BLOOD COUNT (AUTO) 13.9 K/uL (4.8-10.8)
[2023-04-01 08:00] VITALS: BP 120/61
[2023-04-01] MEDS: ATORVASTATIN 20 MG TAB PO SCH (09:31)
[2023-04-01] MEDS: ASPIRIN 81 MG TAB.CHEW PO SCH (09:31)
[2023-04-01] MEDS: AZITHROMYCIN 250 MG TAB PO SCH (09:33)
[2023-04-01] MEDS: ENOXAPARIN 40 MG/0.4 ML SYR SUBQ SCH (09:34)
[2023-04-01] MEDS: HYDROcodone/APAP 5/325 MG 1 TAB TAB PO PRN ×2 (09:39→18:54)
[2023-04-01 12:00] VITALS: BP 115/69
[2023-04-01] MEDS ORDERED: AZIT250T3 PO ×2 (14:04→15:29)
[2023-04-01] MEDS ORDERED: AMOX500C25 PO ×2 (14:06→15:26)
--- NOTE | 2023-04-01 15:11 | NUR ---
ORDER RECEIVED FOR THE PATIENT TO RETURN TO [facility] FOR PHYSICAL THERAPY. ROTATING EQUIPMENT ENGINEER SPOKE WITH THE NURSING NUTRITION THERAPIST AT [facility], JONNA, CLINICAL PACKET FAXED TO HER, AUTHORIZATION FROM PATIENTS INSURANCE REQUIRED PRIOR TO SNF ACCEPTING THE PATIENT. CLINICAL PACKET FAXED TO [facility] COORDINATION UNIT, ALSO ATTEMPTED TO REACH A DC FLUORESCENT LIGHTING MODEL MAKER BUT UNABLE SYSTEM DIDN'T RECOGNIZE THE PATIENTS INFORMATION. Addendum: 04/03/23 at 1200 by YANNI OLIVEIRA CM RECEIVED FOR THE PATIENT TO RETURN TO [facility] FOR PHYSICAL THERAPY. FAXED ALL CLINICALS TO [facility]LL TIFFANY MARRERO. TIFFANY MARRERO DECLINED REQUEST FOR SKILLED AUTH SATING THAT PATIENT IS AT BASE LINE AND WILL BE RETURNING PRISON. ERNESTINA FROM [facility] WILL CALL ME WITH ROOM AND ONCE SHE MAKES ROUNDS. Addendum: 04/03/23 at 1415 by YANNI OLIVEIRA CM PATIENT WAS ACCEPTED BACK TO [facility] LOCATED AT [address] [place], [place] [id number]. PATIENT WILL BE GOING TO ROOM 3A UNDER DR REESE. TRANSPORTATION ARRANGED WITH [facility] WITH A 1700 EXTRUSION PROCESS OPERATOR TIME. RESERVATION # [id number] CHARGE NURSE NNEKA AND SISTER BON AWARE OF THE ABOVE INFORMATION.
[2023-04-01 16:00] VITALS: BP 122/74
--- NOTE | 2023-04-01 19:24 | NUR ---
ENDORSED PT TO GLOBAL SOURCING MANAGER NURSE FOR CONTINUITY OF CARE. PT IS STABLE AT THIS TIME.
--- NOTE | 2023-04-01 19:30 | NUR ---
RECEIVED REPORT FROM DAY SHIFT RN FOR CONTINUITY OF CARE. PT IS AWAKE AND ALERT. SITTING BY BEDSIDE. PT HAS LEFT AC 20 GAUGE. SALINE LOCK. PT IS ON RA SATING 95%. POC DISCUSSED. WILL CONTINUE TO MONITOR THE
[2023-04-01 20:00] VITALS: BP 130/70
[2023-04-01] MEDS: PRAMIPEXOLE 0.5 MG TAB PO SCH (20:23)
--- NOTE | 2023-04-01 21:10 | NUR ---
POWER OF ADAPTED PHYSICAL EDUCATION SPECIALIST, AMEE, PATIENT'S SISTER. AMEE WAS CONCERN ABOUT THE PT SAFETY. SHE WAS TOLD THE PT FELL IN THE RESTROOM THAT THE FLOOR WAS REALLY WET FROM HIS NEIGHBOR WHO MADE A MESS THERE. ON REPORT FROM DAY SHIFT RN I WAS NOT TOLD OF ANY INCIDENT THE PT HAS HAD. CHARGE NURSE IS UNAWARE OF ANY INCIDENT EITHER. TOLD AMEE THAT WE ARE UNAWARE OF ANY INCIDENTS THAT HAS HAPPEN ON REPORT FROM EITHER ME OR CHARGE NURSE. TOLD HER THE PT HAS BEEN FINE DURING THE START OF SHIFT. VITAL STABLES. MEDICATIONS WERE GIVEN TO PT AND WAS HELPED TO BED ON SUPINE POSITION. HE WAS SITTING BY ON THE BED WHEN GIVEN THE MEDICATION. PT HAS NOT BEEN IN ANY DISTRESS AND HAS NOT MENTION OF ANY FALLS DURING START OF SHIFT. PT IS CURRENTLY ASLEEP. AMEE SAID SHE WILL CALL BACK TOMORROW ABOUT WHAT IS GOING ON.
--- NOTE | 2023-04-01 21:25 | NUR ---
SAW THAT PT IS AWAKE. SPOKE TO PT ABOUT IF HE HAD A FALL TODAY. HE STATED THE FLOOR WAS WET WITH WATER AND HE SLIPPED BUT HE WAS ABLE TO HOLD ON TO SOMETHING IN THE RESTROOM. HE DID NOT FALL TO THE GROUND. ASKED HIM IF HE GOT HURT BUT HE SAID NO AND HE WAS ABLE TO CATCH HIMSELF.
[2023-04-02] VITALS: BP 130/70
[2023-04-02 04:00] VITALS: BP 123/63
--- NOTE | 2023-04-02 04:00 | NUR ---
VITAL SIGNS TAKEN AND STABLE. PT NOT IN ANY DISTRESS. RESTING IN BED COMFORTABLY. BREATHING EVEN AND UNLABORED. WILL CONTINUE TO MONITOR THE PT.
[2023-04-02] MEDS: INSULIN LISPRO SLIDING SCALE 100 UNITS/ML VIAL SUBQ PRN ×4 (06:41→21:57)
[2023-04-02] MEDS: BLOOD GLUCOSE MONITORING 1 DEV DEV FS SCH ×4 (06:42→21:55)
[2023-04-02 06:53] LABS: BASOPHILS % (AUTO) 0.1 % (0.0-2.0); EOSINOPHILS # (AUTO) 0.4 K/uL (0-0.4); EOSINOPHILS % (AUTO) 4.8 % (0.0-4.0); HEMATOCRIT 30.1 % (36-52); HEMOGLOBIN 10.2 g/dL (12.0-18.0); LYMPHOCYTES # (AUTO) 0.9 K/uL (2.0-11.5); LYMPHOCYTES % (AUTO) 11.9 % (20.5-51.1); MEAN CORPUSCULAR HEMOGLOBIN 29 pg (27-31); MEAN CORPUSCULAR HGB CONC 34 g/dL (33-37); MEAN CORPUSCULAR VOLUME 86.7 fL (80-94); MONOCYTES # (AUTO) 0.6 K/uL (0.8-1.0); MONOCYTES % (AUTO) 7.1 % (1.7-9.3); NEUTROPHILS # (AUTO) 5.9 K/uL (1.8-7.7); NEUTROPHILS % (AUTO) 76.1 % (42.2-75.2); PLATELET COUNT (AUTO) 146 K/uL (140-450); RED BLOOD CELL COUNT(AUTO) 3.48 MIL/uL (4.20-6.10); RED CELL DISTRIBUTION WIDTH 14.5 % (11.6-13.7); WHITE BLOOD COUNT (AUTO) 7.8 K/uL (4.8-10.8)
[2023-04-02 06:58] LABS: ANION GAP 11.5 (8-16); CARBON DIOXIDE 26.4 mmol/L (21-32); CHLORIDE 98 mmol/L (98-107); CREATININE 0.8 mg/dL (0.6-1.3); GLUCOSE 156 mg/dL (74-106); POTASSIUM 3.9 mmol/L (3.5-5.1); SODIUM SERUM 132 mmol/L (136-145); UREA NITROGEN, BLOOD 18 mg/dL (7-18)
--- NOTE | 2023-04-02 07:03 | NUR ---
ENDORSED PT TO DAY SHIFT RN FOR CONTINUITY OF CARE. PT IS STABLE.
--- NOTE | 2023-04-02 07:05 | NUR ---
RECEIVED REPORT FROM RN RADIATION NURSE FOR CONTINUITY OF CARE. PT STABLE AT THIS TIME.
[2023-04-02 08:00] VITALS: BP 130/62
[2023-04-02] MEDS: AZITHROMYCIN 250 MG TAB PO SCH (08:22)
[2023-04-02] MEDS: ATORVASTATIN 20 MG TAB PO SCH (08:22)
[2023-04-02] MEDS: ASPIRIN 81 MG TAB.CHEW PO SCH (08:22)
[2023-04-02] MEDS: ENOXAPARIN 40 MG/0.4 ML SYR SUBQ SCH (08:32)
[2023-04-02] MEDS: HYDROcodone/APAP 5/325 MG 1 TAB TAB PO PRN (08:33)
[2023-04-02 16:00] VITALS: BP 127/76
--- NOTE | 2023-04-02 19:16 | NUR ---
ENDORSED PT TO CONCRETE FINISHER NURSE FOR CONTINUITY OF CARE. PT IS STABLE AT THIS TIME.
[2023-04-02] MEDS: PRAMIPEXOLE 0.5 MG TAB PO SCH (21:50)
--- NOTE | 2023-04-02 21:50 | NUR ---
ADMINISTERED SCHEDULED DUE MEDICATION. PATIENT WELL RESTED. NO SOB NOTED. DENIES PAIN. CALL LIGHT IN REACH. NEEDS ATTENDED TO.
[2023-04-03 04:00] VITALS: BP 126/61
[2023-04-03 06:18] LABS: ANION GAP 11.6 (8-16); CARBON DIOXIDE 26.7 mmol/L (21-32); CHLORIDE 98 mmol/L (98-107); CREATININE 0.8 mg/dL (0.6-1.3); GLUCOSE 190 mg/dL (74-106); POTASSIUM 4.3 mmol/L (3.5-5.1); SODIUM SERUM 132 mmol/L (136-145); UREA NITROGEN, BLOOD 13 mg/dL (7-18)
[2023-04-03] MEDS: BLOOD GLUCOSE MONITORING 1 DEV DEV FS SCH ×3 (06:42→16:45)
[2023-04-03] MEDS: INSULIN LISPRO SLIDING SCALE 100 UNITS/ML VIAL SUBQ PRN ×3 (06:43→16:45)
[2023-04-03 06:57] LABS: BASOPHILS % (AUTO) 0.2 % (0.0-2.0); EOSINOPHILS # (AUTO) 0.3 K/uL (0-0.4); EOSINOPHILS % (AUTO) 5.4 % (0.0-4.0); HEMOGLOBIN 10.7 g/dL (12.0-18.0); LYMPHOCYTES % (AUTO) 15.8 % (20.5-51.1); MEAN CORPUSCULAR HEMOGLOBIN 30 pg (27-31); MEAN CORPUSCULAR HGB CONC 35 g/dL (33-37); MONOCYTES # (AUTO) 0.8 K/uL (0.8-1.0); MONOCYTES % (AUTO) 12.9 % (1.7-9.3); NEUTROPHILS # (AUTO) 4.2 K/uL (1.8-7.7); NEUTROPHILS % (AUTO) 65.7 % (42.2-75.2); PLATELET COUNT (AUTO) 183 K/uL (140-450); RED CELL DISTRIBUTION WIDTH 14.2 % (11.6-13.7); WHITE BLOOD COUNT (AUTO) 6.4 K/uL (4.8-10.8)
--- NOTE | 2023-04-03 07:24 | NUR ---
ENDORSED PATIENT TO NURSE SEAN FOR CONTINUITY OF CARE. PATIENT STABLE.
[2023-04-03] MEDS: HYDROcodone/APAP 5/325 MG 1 TAB TAB PO PRN ×2 (07:36→16:41)
--- NOTE | 2023-04-03 07:40 | NUR ---
GOT REPORT FROM THE NIGHT NURSE PT IS AWAKE NO [id number]
--- NOTE | 2023-04-03 07:44 | NUR ---
GOT REPORT FROM THE NIGHT NURSE PT IS AWAKE NO [id number]
[2023-04-03 08:00] VITALS: BP 124/62
[2023-04-03] MEDS: ASPIRIN 81 MG TAB.CHEW PO SCH (08:34)
[2023-04-03] MEDS: AZITHROMYCIN 250 MG TAB PO SCH (08:34)
[2023-04-03] MEDS: ENOXAPARIN 40 MG/0.4 ML SYR SUBQ SCH (08:34)
[2023-04-03] MEDS: ATORVASTATIN 20 MG TAB PO SCH (09:38)
--- NOTE | 2023-04-03 12:22 | NUR ---
DC PLANNING A 73 Y.O.MALE PATIENT RESIDENT OF [facility] WAS BROUGHT IN TO ED WITH COMPLAINTS OF CHEST PAIN.WAS GIVEN NTG AT THE FACILITY WITH OUT RELIEF.EKG WITHOUT STEMI.PULSE OX WAS ALSO LOW ON ROOM AIR AT ED (84-85%)AND WITH NON REBREATHER WENT UP TO 96%. CXR- SHOWS MASSIVE HIATAL HERNIA AND PNEUMONIA.ON CEFTRIAXONE IVPB AND AZITHROMYCIN PO.BLOOD CULTURE NO GROWTH.NO MRSA ISOLATED.TALKED TO SISTER,DANNI WHO'S VERY UPSET ABOUT THE INCIDENT OVER THE WEEKEND FOR A MISSED FALL DUE TO NON WORKING TOILET.DIRECTED TO ODIN MYERS TO VERIFY THE EVENT.HOUSE SUP DISCUSSED WHAT HAPPENED.PATIENT DID NOT FALL. PATIENT TO GO BACK TO [facility] .VS STLE AND PATIENT IS ON ROOM AIR.CM TO FOLLOW. Addendum: 04/03/23 at 1400 by YANNI OLIVEIRA RECEIVED ORDER FOR PATIENT TO GO BACK TO [facility] FOR CONTINUE OF CARE. FAXED NEEL PAPERWOR TO [facility] AND [facility]AR[facility]O
--- NOTE | 2023-04-03 14:01 | NUR ---
04/03/23 RD INITIAL ASSESSMENT COMPLETED PLEASE REFER TO NUTRITION ASSESSMENT UNDER CARE ACTIVITY FOR ESTIMATED NUTRITIONAL NEEDS. 1. CONTINUE [facility] 60GMS DIET TOLERATED 2. RD RECOMMENDS [employer] [facility] TO HELP WITH WOUNDS AND WILL PROVIDE 120 CALORIES AND 30 GRAMS OF PROTEIN. 3. RD TO FOLLOW-UP 3-5 DAYS, MODERATE RISK NEGRA MONET RD
--- NOTE | 2023-04-03 19:15 | NUR ---
pt discharged picked by transporter, left the unit with out discomfort.[email or web address]
== END 2023-04-03 19:00 | DRG 193 ==
LOC: MED 08:58 → MTU 21:45
PROVIDERS: ADMIT Internal Medicine; ATTEND Internal Medicine
DX: J18.9 Pneumonia, unspecified organism (principal); J96.01 Acute respiratory failure with hypoxia; R65.10 Systemic inflammatory response syndrome (SIRS) of non-infectious origin without acute organ dysfunction; F03.90 Unspecified dementia, unspecified severity, without behavioral disturbance, psychotic disturbance, mood disturbance, and anxiety; M19.012 Primary osteoarthritis, left shoulder; N40.0 Benign prostatic hyperplasia without lower urinary tract symptoms; E78.5 Hyperlipidemia, unspecified; E78.00 Pure hypercholesterolemia, unspecified; E11.65 Type 2 diabetes mellitus with hyperglycemia; K44.9 Diaphragmatic hernia without obstruction or gangrene; Z20.822 Contact with and (suspected) exposure to COVID-19
CPT/HCPCS: 36415; 71045; 71250; 80048; 80053; 81001; 82948; 83605; 83690; 83735; 83880; 84484; 85025; 87040; 87081; 93005; 96365; 97116; 97163-GP; 97530; 99291; J0696; J1650; J2543; J7060; Q0092

== ENCOUNTER 2023-09-03 00:15 | Inpatient (IN) | payer OTHER ==
[~2023-09-03] VITALS: Ht 175.3 cm; Wt 63.5 kg
[2023-09-03] VITALS (7 sets, daily range): BP systolic 121–140; BP diastolic 54–77; PULSE 70–97; RESP 16–19; TEMP 97.4–98.8; O2SAT 94–98
[~2023-09-03 00:15] MED LIST changes: -CEPH-588 PO; -DOXY-690 PO
[2023-09-03 01:17] LABS: BASOPHILS % (AUTO) 0.4 % (0.0-2.0); EOSINOPHILS % (AUTO) 0.5 % (0.0-4.0); HEMATOCRIT 32.2 % (36-52); HEMOGLOBIN 10.9 g/dL (12.0-18.0); LYMPHOCYTES # (AUTO) 0.6 K/uL (2.0-11.5); LYMPHOCYTES % (AUTO) 8.4 % (20.5-51.1); MEAN CORPUSCULAR HEMOGLOBIN 30 pg (27-31); MEAN CORPUSCULAR HGB CONC 34 g/dL (33-37); MEAN CORPUSCULAR VOLUME 89.7 fL (80-94); MONOCYTES # (AUTO) 0.5 K/uL (0.8-1.0); MONOCYTES % (AUTO) 6.9 % (1.7-9.3); NEUTROPHILS # (AUTO) 6.1 K/uL (1.8-7.7); NEUTROPHILS % (AUTO) 83.8 % (42.2-75.2); PLATELET COUNT (AUTO) 150 K/uL (140-450); RED BLOOD CELL COUNT(AUTO) 3.59 MIL/uL (4.20-6.10); RED CELL DISTRIBUTION WIDTH 14.1 % (11.6-13.7); WHITE BLOOD COUNT (AUTO) 7.3 K/uL (4.8-10.8)
[2023-09-03] MEDS ORDERED: CEFEPIME 500 MG in DEXTROSE 5% 50 ML IV ONE (01:30)
[2023-09-03] MEDS ORDERED: LEVOFLOXACIN 500 MG/D5W PREMIX 100 ML IV ONE (01:30)
[2023-09-03] MEDS ORDERED: VANCOMYCIN 1,000 MG in DEXTROSE 5% 250 ML IV ONE (01:30)
[2023-09-03] MEDS ORDERED: DEXTROSE 50% 50 ML SYR IVP ONE (01:35)
[2023-09-03 01:38] LABS: ALANINE AMINOTRANSFERASE 37 U/L (12-78); ALBUMIN 3.2 g/dL (3.4-5.0); ALKALINE PHOSPHATASE 109 U/L (50-136); ANION GAP 11.3 (8-16); ASPARTATE AMINOTRANSFERASE 23 U/L (15-37); CALCIUM 8.1 mg/dL (8.5-10.1); CARBON DIOXIDE 26.2 mmol/L (21-32); CHLORIDE 102 mmol/L (98-107); GLUCOSE 75 mg/dL (74-106); POTASSIUM 3.5 mmol/L (3.5-5.1); SODIUM SERUM 136 mmol/L (136-145); TOTAL BILIRUBIN 0.4 mg/dL (0.0-1.0); TOTAL PROTEIN, SERUM 6.8 g/dL (6.4-8.2); UREA NITROGEN, BLOOD 20 mg/dL (7-18)
[2023-09-03 01:54] LABS: LACTIC ACID 0.9 mmol/L (0.4-2.0)
[2023-09-03] MEDS ORDERED: POTASSIUM CHL 20 MEQ/D5-1/2NS 1,000 ML IV ONE (02:50)
[2023-09-03] MEDS ORDERED: VANCOMYCIN 1,000 MG VIAL ONE (03:04)
[2023-09-03] MEDS ORDERED: CEFEPIME 1,000 MG VIAL ONE (03:08)
[2023-09-03 03:16] LABS: FLU A ANTIGEN negative (NEGATIVE); FLU B ANTIGEN negative (NEGATIVE)
[2023-09-03 03:51] LABS: APPEARANCE,URINE CLEAR (CLEAR); BILIRUBIN,URINE NEGATIVE (NEGATIVE); BLOOD, URINE NEGATIVE (NEGATIVE); COLOR,URINE YELLOW (YELLOW); LEUKOCYTE ESTERASE ,URINE NEGATIVE (NEGATIVE); NITRITE, URINE NEGATIVE (NEGATIVE); PROTEIN,URINE NEGATIVE (NEGATIVE); UGLUCOSE NEGATIVE (NEGATIVE); UROBILINOGEN,URINE 0.2 EU/dL (0.2 - 1)
[2023-09-03] MEDS: INSULIN LISPRO SLIDING SCALE 100 UNITS/ML VIAL SUBQ PRN ×4 (08:35→20:40)
[2023-09-03] MEDS: AZITHROMYCIN 250 MG TAB PO SCH (08:38)
[2023-09-03] MEDS: NACL 0.9% 1,000 ML IV SCH ×2 (08:38→16:35)
[2023-09-03] MEDS: BLOOD GLUCOSE MONITORING 1 DEV DEV FS SCH ×3 (11:39→20:36)
[2023-09-03] MEDS ORDERED: bisacodyL 5 MG TABEC PO SCH (21:15)
[2023-09-04] MEDS: HYDROcodone/APAP 5/325 MG 1 TAB TAB PO PRN ×2 (04:34→11:20)
[2023-09-04 05:43] LABS: ANION GAP 11.9 (8-16); CALCIUM 8.1 mg/dL (8.5-10.1); CARBON DIOXIDE 23.9 mmol/L (21-32); CHLORIDE 107 mmol/L (98-107); GLUCOSE 113 mg/dL (74-106); POTASSIUM 3.8 mmol/L (3.5-5.1); SODIUM SERUM 139 mmol/L (136-145); UREA NITROGEN, BLOOD 14 mg/dL (7-18)
[2023-09-04] MEDS: NACL 0.9% 1,000 ML IV SCH (06:08)
[2023-09-04] MEDS: BLOOD GLUCOSE MONITORING 1 DEV DEV FS SCH ×4 (06:32→21:44)
[2023-09-04 08:00] VITALS: BP 135/63; PULSE 66; RESP 18; TEMP 98.2; O2SAT 93; O2SAT 97
[2023-09-04] MEDS: ASPIRIN 81 MG TAB.CHEW PO SCH (09:13)
[2023-09-04] MEDS: ASCORBIC ACID 500 MG TAB PO SCH (09:13)
[2023-09-04] MEDS: DOCUSATE SODIUM 100 MG GELCAP PO SCH (09:13)
[2023-09-04] MEDS: AZITHROMYCIN 250 MG TAB PO SCH (09:14)
[2023-09-04] MEDS: ATORVASTATIN 20 MG TAB PO SCH (09:14)
[2023-09-04 10:02] LABS: BASOPHILS % (AUTO) 0.5 % (0.0-2.0); EOSINOPHILS # (AUTO) 0.2 K/uL (0-0.4); EOSINOPHILS % (AUTO) 3.2 % (0.0-4.0); HEMOGLOBIN 10.4 g/dL (12.0-18.0); LYMPHOCYTES # (AUTO) 1.1 K/uL (2.0-11.5); LYMPHOCYTES % (AUTO) 15.1 % (20.5-51.1); MEAN CORPUSCULAR HEMOGLOBIN 30 pg (27-31); MEAN CORPUSCULAR HGB CONC 34 g/dL (33-37); MONOCYTES # (AUTO) 0.4 K/uL (0.8-1.0); MONOCYTES % (AUTO) 5.4 % (1.7-9.3); NEUTROPHILS # (AUTO) 5.3 K/uL (1.8-7.7); NEUTROPHILS % (AUTO) 75.8 % (42.2-75.2); PLATELET COUNT (AUTO) 143 K/uL (140-450); RED BLOOD CELL COUNT(AUTO) 3.45 MIL/uL (4.20-6.10); RED CELL DISTRIBUTION WIDTH 14.4 % (11.6-13.7)
[2023-09-04] MEDS ORDERED: NON ADHERENT DRESSING TP PRN (11:15)
[2023-09-04] MEDS: INSULIN LISPRO SLIDING SCALE 100 UNITS/ML VIAL SUBQ PRN ×2 (11:59→15:55)
[2023-09-04] MEDS: NON ADHERENT DRESSING TP SCH (13:00)
[2023-09-04 18:00] VITALS: BP 130/66; PULSE 66; RESP 18; TEMP 97.4; O2SAT 97
[2023-09-04] MEDS: INSULIN LISPRO 100 UNITS/ML VIAL SUBQ SCH (18:39)
[2023-09-04] MEDS ORDERED: BUDESONIDE 0.25 MG/2 ML NEBU INH SCH (19:30)
[2023-09-04 20:00] VITALS: BP 130/59; PULSE 67; RESP 18; TEMP 97.2; O2SAT 97
[2023-09-04] MEDS: DEXTROSE 50% 50 ML SYR IVP PRN (20:18)
[2023-09-04] MEDS ORDERED: INSULIN LANTUS 100 UNITS/ML 10 ML VIAL SUBQ SCH (21:00)
[2023-09-04] MEDS: CEFEPIME 1,000 MG in DEXTROSE 5% 50 ML IV SCH (21:36)
[2023-09-04] MEDS: PRAMIPEXOLE 0.5 MG TAB PO SCH (21:39)
[2023-09-05] MEDS: HYDROcodone/APAP 5/325 MG 1 TAB TAB PO PRN ×2 (03:43→22:48)
[2023-09-05 04:00] VITALS: BP 126/62; PULSE 69; RESP 18; TEMP 97.9; O2SAT 97
[2023-09-05 05:35] LABS: BASOPHILS # (AUTO) 0.1 K/uL (0.00-0.22); BASOPHILS % (AUTO) 0.7 % (0.0-2.0); EOSINOPHILS # (AUTO) 0.3 K/uL (0-0.4); EOSINOPHILS % (AUTO) 3.6 % (0.0-4.0); HEMATOCRIT 30.4 % (36-52); HEMOGLOBIN 10.4 g/dL (12.0-18.0); LYMPHOCYTES # (AUTO) 1.1 K/uL (2.0-11.5); LYMPHOCYTES % (AUTO) 12.6 % (20.5-51.1); MEAN CORPUSCULAR HEMOGLOBIN 30 pg (27-31); MEAN CORPUSCULAR HGB CONC 34 g/dL (33-37); MEAN CORPUSCULAR VOLUME 88.9 fL (80-94); MONOCYTES # (AUTO) 0.6 K/uL (0.8-1.0); MONOCYTES % (AUTO) 6.9 % (1.7-9.3); NEUTROPHILS # (AUTO) 6.5 K/uL (1.8-7.7); NEUTROPHILS % (AUTO) 76.2 % (42.2-75.2); PLATELET COUNT (AUTO) 155 K/uL (140-450); RED BLOOD CELL COUNT(AUTO) 3.42 MIL/uL (4.20-6.10); RED CELL DISTRIBUTION WIDTH 14.1 % (11.6-13.7); WHITE BLOOD COUNT (AUTO) 8.6 K/uL (4.8-10.8)
[2023-09-05 06:42] LABS: ANION GAP 12.6 (8-16); CALCIUM 8.5 mg/dL (8.5-10.1); CARBON DIOXIDE 23.7 mmol/L (21-32); CHLORIDE 104 mmol/L (98-107); GLUCOSE 232 mg/dL (74-106); POTASSIUM 4.3 mmol/L (3.5-5.1); SODIUM SERUM 136 mmol/L (136-145); UREA NITROGEN, BLOOD 19 mg/dL (7-18)
[2023-09-05] MEDS: INSULIN LISPRO 100 UNITS/ML VIAL SUBQ SCH ×3 (06:49→16:23)
[2023-09-05] MEDS: BLOOD GLUCOSE MONITORING 1 DEV DEV FS SCH ×4 (06:50→22:25)
[2023-09-05 08:00] VITALS: BP 118/62; PULSE 81; RESP 18; TEMP 97.6; O2SAT 97
[2023-09-05 08:19] VITALS: PULSE 68; RESP 20; O2SAT 99
[2023-09-05] MEDS: ATORVASTATIN 20 MG TAB PO SCH (09:01)
[2023-09-05] MEDS: ASPIRIN 81 MG TAB.CHEW PO SCH (09:01)
[2023-09-05] MEDS: ASCORBIC ACID 500 MG TAB PO SCH (09:02)
[2023-09-05] MEDS: PANTOPRAZOLE 40 MG TABEC PO SCH (09:02)
[2023-09-05] MEDS: DOCUSATE SODIUM 100 MG GELCAP PO SCH (09:02)
[2023-09-05] MEDS ORDERED: MAGNESIUM OXIDE 400 MG TAB PO SCH (09:05)
[2023-09-05] MEDS: CEFEPIME 1,000 MG in DEXTROSE 5% 50 ML IV SCH ×2 (09:13→22:14)
[2023-09-05] MEDS: INSULIN LISPRO SLIDING SCALE 100 UNITS/ML VIAL SUBQ PRN ×2 (11:42→22:33)
[2023-09-05] MEDS: NON ADHERENT DRESSING TP SCH (13:30)
[2023-09-05] MEDS: DEXTROSE 50% 50 ML SYR IVP PRN (15:39)
[2023-09-05 16:00] VITALS: BP 138/79; PULSE 66; RESP 18; TEMP 98.6; O2SAT 99
[2023-09-05 20:00] VITALS: BP 105/65; PULSE 81; RESP 18; TEMP 97.6; O2SAT 98
[2023-09-05] MEDS ORDERED: rOPINIRole 0.25 MG TAB PO SCH (21:00)
[2023-09-05] MEDS: PRAMIPEXOLE 0.5 MG TAB PO SCH (22:15)
[2023-09-06] MEDS: BLOOD GLUCOSE MONITORING 1 DEV DEV FS SCH ×2 (06:53→11:40)
[2023-09-06 08:00] VITALS: BP 148/87; PULSE 78; RESP 18; TEMP 96.3; O2SAT 94
[2023-09-06] MEDS: CEFEPIME 1,000 MG in DEXTROSE 5% 50 ML IV SCH (08:35)
[2023-09-06] MEDS: PANTOPRAZOLE 40 MG TABEC PO SCH (08:44)
[2023-09-06] MEDS: ASCORBIC ACID 500 MG TAB PO SCH (08:44)
[2023-09-06] MEDS: DOCUSATE SODIUM 100 MG GELCAP PO SCH (08:44)
[2023-09-06] MEDS: ASPIRIN 81 MG TAB.CHEW PO SCH (08:44)
[2023-09-06] MEDS: ATORVASTATIN 20 MG TAB PO SCH (08:45)
[2023-09-06] MEDS ORDERED: LEVO750T75 PO (11:20)
[2023-09-06] MEDS ORDERED: HUMSLIDE SUBQ (11:20)
[2023-09-06] MEDS: INSULIN LISPRO SLIDING SCALE 100 UNITS/ML VIAL SUBQ PRN (11:42)
[2023-09-06] MEDS: NON ADHERENT DRESSING TP SCH (13:00)
== END 2023-09-06 15:40 | DRG 637 ==
LOC: MED 00:15 → MTU 03:22
PROVIDERS: ADMIT Family Medicine; ATTEND Family Medicine
DX: E11.649 Type 2 diabetes mellitus with hypoglycemia without coma (principal); J15.9 Unspecified bacterial pneumonia; J44.0 Chronic obstructive pulmonary disease with (acute) lower respiratory infection; J96.10 Chronic respiratory failure, unspecified whether with hypoxia or hypercapnia; I10 Essential (primary) hypertension; Z20.822 Contact with and (suspected) exposure to COVID-19; F03.90 Unspecified dementia, unspecified severity, without behavioral disturbance, psychotic disturbance, mood disturbance, and anxiety; Z86.73 Personal history of transient ischemic attack (TIA), and cerebral infarction without residual deficits; Z79.4 Long term (current) use of insulin; Z79.899 Other long term (current) drug therapy; Z99.81 Dependence on supplemental oxygen
CPT/HCPCS: 36415; 71045; 71250; 80048; 80053; 81003; 82948; 83036; 83605; 83735; 84484; 85025; 87040; 87081; 93005; 96365; 96368; 96375; 97112; 97116; 97530; 99291; J0692; J0696; J1644; J1815; J1956; J3370; J7060; Q0092

== ENCOUNTER 2024-01-12 21:57 | Inpatient (IN) | payer OTHER ==
[~2024-01-12] VITALS: Ht 172.7 cm; Wt 68.0 kg
[~2024-01-12 21:57] MED LIST changes: +HUMSLIDE SUBQ; -IBUP-2213 PO; -INSU100I5 SC; -INSU100S5 SQ; +LEVO750T75 PO
[2024-01-12 22:12] VITALS: BP 134/70; PULSE 92; RESP 20; TEMP 97.8; O2SAT 96
[2024-01-12] MEDS: DEXTROSE 10% 250 ML IV ONE (22:15)
[2024-01-12 23:10] LABS: BASOPHILS % (AUTO) 0.5 % (0.0-2.0); EOSINOPHILS % (AUTO) 0.7 % (0.0-4.0); HEMATOCRIT 32.9 % (36-52); HEMOGLOBIN 11.3 g/dL (12.0-18.0); LYMPHOCYTES # (AUTO) 0.2 K/uL (2.0-11.5); LYMPHOCYTES % (AUTO) 2.8 % (20.5-51.1); MEAN CORPUSCULAR HEMOGLOBIN 30 pg (27-31); MEAN CORPUSCULAR HGB CONC 34 g/dL (33-37); MONOCYTES # (AUTO) 0.5 K/uL (0.8-1.0); MONOCYTES % (AUTO) 9.1 % (1.7-9.3); NEUTROPHILS # (AUTO) 5.3 K/uL (1.8-7.7); PLATELET COUNT (AUTO) 150 K/uL (140-450); RED BLOOD CELL COUNT(AUTO) 3.78 MIL/uL (4.20-6.10); RED CELL DISTRIBUTION WIDTH 14.7 % (11.6-13.7); WHITE BLOOD COUNT (AUTO) 6.1 K/uL (4.8-10.8)
[2024-01-12 23:26] LABS: NEUTROPHILS % (AUTO) 86.9 % (42.2-75.2)
[2024-01-12 23:28] LABS: ANION GAP 10.6 (8-16); CALCIUM 7.9 mg/dL (8.5-10.1); CARBON DIOXIDE 28.5 mmol/L (21-32); CHLORIDE 98 mmol/L (98-107); GLUCOSE 192 mg/dL (74-106); POTASSIUM 4.1 mmol/L (3.5-5.1); SODIUM SERUM 133 mmol/L (136-145); UREA NITROGEN, BLOOD 17 mg/dL (7-18)
[2024-01-12 23:31] LABS: ALBUMIN 2.9 g/dL (3.4-5.0); BILIRUBIN,DIRECT 0.1 mg/dL (0.0-0.3); TOTAL BILIRUBIN 0.4 mg/dL (0.0-1.0); TOTAL PROTEIN, SERUM 7.8 g/dL (6.4-8.2)
[2024-01-12 23:40] LABS: LACTIC ACID 1.3 mmol/L (0.4-2.0)
[2024-01-13 02:27] LABS: APPEARANCE,URINE CLEAR (CLEAR); BILIRUBIN,URINE NEGATIVE (NEGATIVE); BLOOD, URINE 2+ (NEGATIVE); COLOR,URINE YELLOW (YELLOW); LEUKOCYTE ESTERASE ,URINE NEGATIVE (NEGATIVE); NITRITE, URINE NEGATIVE (NEGATIVE); PROTEIN,URINE NEGATIVE (NEGATIVE); UGLUCOSE NEGATIVE (NEGATIVE); UROBILINOGEN,URINE 0.2 EU/dL (0.2 - 1)
[2024-01-13 02:34] LABS: BACTERIA,URINE OCCASSIONAL /HPF (None Seen); SQUAMOUS EPITHELIAL CELL,UR 0-3 (FEW) /LPF (0-3 (FEW)); WBC,URINE 0-5 /HPF (0-5)
[2024-01-13] MEDS: DEXTROSE 10% 250 ML IV ONE (03:00)
[2024-01-13] MEDS: DEXT 5% / NACL 0.9% 500 ML IV SCH (04:05)
[2024-01-13 05:04] VITALS: BP 153/83; PULSE 90; RESP 20; TEMP 97.9; O2SAT 98
[2024-01-13 07:40] VITALS: RESP 20; O2SAT 98
[2024-01-13 07:50] LABS: BASOPHILS % (AUTO) 0.5 % (0.0-2.0); EOSINOPHILS # (AUTO) 0.1 K/uL (0-0.4); EOSINOPHILS % (AUTO) 0.9 % (0.0-4.0); HEMATOCRIT 30.9 % (36-52); HEMOGLOBIN 10.8 g/dL (12.0-18.0); LYMPHOCYTES # (AUTO) 0.7 K/uL (2.0-11.5); LYMPHOCYTES % (AUTO) 10.8 % (20.5-51.1); MEAN CORPUSCULAR HEMOGLOBIN 30 pg (27-31); MEAN CORPUSCULAR HGB CONC 35 g/dL (33-37); MEAN CORPUSCULAR VOLUME 86.6 fL (80-94); MONOCYTES # (AUTO) 0.8 K/uL (0.8-1.0); MONOCYTES % (AUTO) 11.6 % (1.7-9.3); NEUTROPHILS % (AUTO) 76.2 % (42.2-75.2); PLATELET COUNT (AUTO) 134 K/uL (140-450); RED BLOOD CELL COUNT(AUTO) 3.57 MIL/uL (4.20-6.10); RED CELL DISTRIBUTION WIDTH 14.4 % (11.6-13.7); WHITE BLOOD COUNT (AUTO) 6.5 K/uL (4.8-10.8)
[2024-01-13 08:00] VITALS: BP 139/71; PULSE 86; PULSE 87; RESP 18; TEMP 98.4; O2SAT 96
[2024-01-13 08:19] LABS: ALANINE AMINOTRANSFERASE 34 U/L (12-78); ALKALINE PHOSPHATASE 91 U/L (50-136); ANION GAP 10.5 (8-16); ASPARTATE AMINOTRANSFERASE 27 U/L (15-37); CALCIUM 7.6 mg/dL (8.5-10.1); CARBON DIOXIDE 27.2 mmol/L (21-32); CHLORIDE 99 mmol/L (98-107); CREATININE 0.9 mg/dL (0.6-1.3); GLUCOSE 144 mg/dL (74-106); POTASSIUM 3.7 mmol/L (3.5-5.1); SODIUM SERUM 133 mmol/L (136-145); TOTAL BILIRUBIN 0.5 mg/dL (0.0-1.0); TOTAL PROTEIN, SERUM 7.1 g/dL (6.4-8.2); UREA NITROGEN, BLOOD 14 mg/dL (7-18)
[2024-01-13 08:58] LABS: ALBUMIN 2.7 g/dL (3.4-5.0)
[2024-01-13] MEDS ORDERED: ONDANSETRON 4 MG/2 ML VIAL IVP PRN (10:10)
[2024-01-13] MEDS ORDERED: POTASSIUM CHLORIDE 10 MEQ TABER PO PRN (10:10)
[2024-01-13] MEDS ORDERED: ACETAMINOPHEN 325 MG TAB PO PRN (10:10)
[2024-01-13] MEDS ORDERED: DEXTROSE 50% 50 ML SYR IVP PRN (10:10)
[2024-01-13] MEDS ORDERED: hydrALAZINE 20 MG/ML VIAL IVP PRN (10:15)
[2024-01-13] MEDS: BLOOD GLUCOSE MONITORING 1 DEV DEV FS SCH (11:46)
[2024-01-13 12:00] VITALS: BP 121/59; PULSE 85; PULSE 86; RESP 18; TEMP 98.5; O2SAT 96
[2024-01-13 16:00] VITALS: BP 152/75; PULSE 85; PULSE 86; RESP 19; TEMP 98.4; O2SAT 96
[2024-01-13] MEDS: INSULIN LISPRO SLIDING SCALE 100 UNITS/ML VIAL SUBQ PRN (18:33)
[2024-01-13 20:00] VITALS: BP 98/58; PULSE 70; PULSE 76; RESP 19; TEMP 98; O2SAT 93; O2SAT 96
[2024-01-13] MEDS: TERAZOSIN 5 MG CAP PO SCH (20:18)
[2024-01-13] MEDS ORDERED: TERAZOSIN HCL 5 MG PO SCH (21:00)
[2024-01-13] MEDS: MORPHINE SULFATE 2 MG/ML SYR IVP PRN (23:28)
[2024-01-14] VITALS: BP 114/61; PULSE 65; PULSE 75; RESP 18; TEMP 98; O2SAT 95
[2024-01-14] MEDS: MELATONIN 3 MG TAB PO PRN (00:20)
[2024-01-14 04:00] VITALS: BP 111/65; PULSE 61; PULSE 62; RESP 18; TEMP 98; O2SAT 95
[2024-01-14] MEDS: HYDROcodone/APAP 5/325 MG 1 TAB TAB PO PRN (05:38)
[2024-01-14 07:02] LABS: BASOPHILS % (AUTO) 0.6 % (0.0-2.0); EOSINOPHILS # (AUTO) 0.1 K/uL (0-0.4); EOSINOPHILS % (AUTO) 2.3 % (0.0-4.0); HEMATOCRIT 32.9 % (36-52); HEMOGLOBIN 11.3 g/dL (12.0-18.0); LYMPHOCYTES # (AUTO) 1.3 K/uL (2.0-11.5); LYMPHOCYTES % (AUTO) 21.2 % (20.5-51.1); MEAN CORPUSCULAR HEMOGLOBIN 30 pg (27-31); MEAN CORPUSCULAR HGB CONC 34 g/dL (33-37); MEAN CORPUSCULAR VOLUME 86.7 fL (80-94); MONOCYTES # (AUTO) 0.7 K/uL (0.8-1.0); MONOCYTES % (AUTO) 11.7 % (1.7-9.3); NEUTROPHILS % (AUTO) 64.2 % (42.2-75.2); PLATELET COUNT (AUTO) 140 K/uL (140-450); RED BLOOD CELL COUNT(AUTO) 3.79 MIL/uL (4.20-6.10); RED CELL DISTRIBUTION WIDTH 14.6 % (11.6-13.7); WHITE BLOOD COUNT (AUTO) 6.2 K/uL (4.8-10.8)
[2024-01-14 07:54] LABS: ALANINE AMINOTRANSFERASE 46 U/L (12-78); ALBUMIN 2.7 g/dL (3.4-5.0); ALKALINE PHOSPHATASE 97 U/L (50-136); ANION GAP 11.4 (8-16); ASPARTATE AMINOTRANSFERASE 34 U/L (15-37); CARBON DIOXIDE 26.5 mmol/L (21-32); CHLORIDE 102 mmol/L (98-107); CREATININE 1.1 mg/dL (0.6-1.3); GLUCOSE 103 mg/dL (74-106); MAGNESIUM 1.5 mg/dL (1.8-2.4); PHOSPHORUS 3.5 mg/dL (2.5-4.9); POTASSIUM 3.9 mmol/L (3.5-5.1); SODIUM SERUM 136 mmol/L (136-145); TOTAL BILIRUBIN 0.3 mg/dL (0.0-1.0); TOTAL PROTEIN, SERUM 7.2 g/dL (6.4-8.2); UREA NITROGEN, BLOOD 20 mg/dL (7-18)
[2024-01-14 08:00] VITALS: PULSE 62; RESP 18; O2SAT 93
[2024-01-14] MEDS: ASCORBIC ACID 500 MG TAB PO SCH (09:18)
[2024-01-14] MEDS: ASPIRIN 81 MG TAB.CHEW PO SCH (09:19)
[2024-01-14] MEDS: POLYETHYLENE GLYCOL 17 GM/PKT PO PRN (09:20)
[2024-01-14 20:00] VITALS: BP 129/66; PULSE 72; PULSE 73; RESP 18; TEMP 97.7; O2SAT 95; O2SAT 96
[2024-01-14] MEDS: ATORVASTATIN 20 MG TAB PO SCH (22:09)
[2024-01-15] VITALS: BP 96/62; PULSE 101; PULSE 118; RESP 18; TEMP 97.7; O2SAT 95
[2024-01-15] MEDS: MAG SULF 2000 MG/WATER PREMIX 50 ML IV PRN (01:43)
[2024-01-15 04:00] VITALS: BP 96/51; PULSE 66; PULSE 80; RESP 18; TEMP 97.8; O2SAT 95
[2024-01-15 06:50] LABS: BASOPHILS % (AUTO) 0.5 % (0.0-2.0); EOSINOPHILS # (AUTO) 0.3 K/uL (0-0.4); EOSINOPHILS % (AUTO) 5.2 % (0.0-4.0); HEMATOCRIT 34.6 % (36-52); HEMOGLOBIN 12.1 g/dL (12.0-18.0); LYMPHOCYTES # (AUTO) 1.5 K/uL (2.0-11.5); LYMPHOCYTES % (AUTO) 22.4 % (20.5-51.1); MEAN CORPUSCULAR HEMOGLOBIN 30 pg (27-31); MEAN CORPUSCULAR HGB CONC 35 g/dL (33-37); MEAN CORPUSCULAR VOLUME 86.6 fL (80-94); MONOCYTES # (AUTO) 0.7 K/uL (0.8-1.0); NEUTROPHILS # (AUTO) 4.1 K/uL (1.8-7.7); NEUTROPHILS % (AUTO) 60.9 % (42.2-75.2); PLATELET COUNT (AUTO) 163 K/uL (140-450); RED BLOOD CELL COUNT(AUTO) 3.99 MIL/uL (4.20-6.10); RED CELL DISTRIBUTION WIDTH 14.9 % (11.6-13.7); WHITE BLOOD COUNT (AUTO) 6.7 K/uL (4.8-10.8)
[2024-01-15 07:48] LABS: ALANINE AMINOTRANSFERASE 38 U/L (12-78); ALKALINE PHOSPHATASE 104 U/L (50-136); ANION GAP 10.2 (8-16); ASPARTATE AMINOTRANSFERASE 26 U/L (15-37); CALCIUM 8.6 mg/dL (8.5-10.1); CARBON DIOXIDE 28.2 mmol/L (21-32); CHLORIDE 103 mmol/L (98-107); CREATININE 1.1 mg/dL (0.6-1.3); GLUCOSE 114 mg/dL (74-106); MAGNESIUM 2.7 mg/dL (1.8-2.4); PHOSPHORUS 3.8 mg/dL (2.5-4.9); POTASSIUM 4.4 mmol/L (3.5-5.1); SODIUM SERUM 137 mmol/L (136-145); TOTAL BILIRUBIN 0.3 mg/dL (0.0-1.0); TOTAL PROTEIN, SERUM 7.8 g/dL (6.4-8.2); UREA NITROGEN, BLOOD 23 mg/dL (7-18)
[2024-01-15] MEDS ORDERED: NON ADHERENT DRESSING TP PRN (12:00)
[2024-01-16] MEDS ORDERED: GAUZE TP SCH (01:00)
[2024-01-16] MEDS ORDERED: NON ADHERENT DRESSING TP SCH (13:00)
== END 2024-01-15 19:25 | DRG 637 ==
LOC: MED 21:57 → MTU 01-13 04:19
PROVIDERS: ADMIT Student in an Organized Health Care Education/Training Program; ATTEND Student in an Organized Health Care Education/Training Program
DX: E11.649 Type 2 diabetes mellitus with hypoglycemia without coma (principal); G93.41 Metabolic encephalopathy; I10 Essential (primary) hypertension; J44.9 Chronic obstructive pulmonary disease, unspecified; N40.0 Benign prostatic hyperplasia without lower urinary tract symptoms; Z79.82 Long term (current) use of aspirin; Z79.899 Other long term (current) drug therapy
CPT/HCPCS: 36415; 70450; 71045; 80048; 80053; 80076; 81001; 82948; 83036; 83605; 83735; 84100; 85025; 87040; 87081; 93005; 99285; J1815; J2270; J3475; Q0092

== ENCOUNTER 2024-04-07 13:03 | Emergency (ER) | payer OTHER ==
[~2024-04-07] VITALS: Ht 172.7 cm; Wt 63.5 kg
[~2024-04-07 13:03] MED LIST changes: -LEVO750T75 PO; +PRAM0.5T34 PO; -PRAM0.5T4 PO
[2024-04-07 13:04] VITALS: BP 122/70; PULSE 74; RESP 20; TEMP 97.6; O2SAT 93
[2024-04-07] MEDS: ALBUTEROL SULFATE/IPRATROPIU 3 ML SOL IH ONE (13:27)
[2024-04-07 13:28] VITALS: PULSE 71; RESP 22; O2SAT 96
[2024-04-07 13:44] LABS: BASOPHILS # (AUTO) 0.1 K/uL (0.00-0.22); BASOPHILS % (AUTO) 0.8 % (0.0-2.0); EOSINOPHILS # (AUTO) 0.2 K/uL (0-0.4); EOSINOPHILS % (AUTO) 3.4 % (0.0-4.0); HEMATOCRIT 37.5 % (36-52); HEMOGLOBIN 12.8 g/dL (12.0-18.0); LYMPHOCYTES # (AUTO) 1.2 K/uL (2.0-11.5); LYMPHOCYTES % (AUTO) 17.5 % (20.5-51.1); MEAN CORPUSCULAR HEMOGLOBIN 30 pg (27-31); MEAN CORPUSCULAR HGB CONC 34 g/dL (33-37); MONOCYTES # (AUTO) 0.3 K/uL (0.8-1.0); MONOCYTES % (AUTO) 4.3 % (1.7-9.3); NEUTROPHILS # (AUTO) 5.1 K/uL (1.8-7.7); PLATELET COUNT (AUTO) 162 K/uL (140-450); RED BLOOD CELL COUNT(AUTO) 4.21 MIL/uL (4.20-6.10); RED CELL DISTRIBUTION WIDTH 14.8 % (11.6-13.7); WHITE BLOOD COUNT (AUTO) 6.9 K/uL (4.8-10.8)
[2024-04-07 13:59] LABS: ANION GAP 14.1 (8-16); CALCIUM 8.5 mg/dL (8.5-10.1); CARBON DIOXIDE 24.6 mmol/L (21-32); CHLORIDE 105 mmol/L (98-107); GLUCOSE 61 mg/dL (74-106); POTASSIUM 3.7 mmol/L (3.5-5.1); SODIUM SERUM 140 mmol/L (136-145); UREA NITROGEN, BLOOD 20 mg/dL (7-18)
[2024-04-07 14:02] LABS: FLU A ANTIGEN negative (NEGATIVE); FLU B ANTIGEN negative (NEGATIVE); RSV Negative (NEGATIVE)
[2024-04-07 14:05] LABS: PARTIAL THROMBOPLASTIN TIME 27.7 secs (22-35.6); PROTHROMBIN TIME 10.5 secs (10.8-13.4)
[2024-04-07] MEDS: methylPREDNISolone SS 125 MG/2 ML VIAL IVP ONE (14:07)
[2024-04-07 14:48] VITALS: BP 122/70; PULSE 92; RESP 22; TEMP 97.6; O2SAT 86
[2024-04-08] MEDS ORDERED: AMOX1TAB8 PO (09:15)
[2024-04-08] MEDS ORDERED: AZIT250T4 PO (09:15)
== END 2024-04-07 16:58 ==
LOC: MED 13:03
DX: J44.1 Chronic obstructive pulmonary disease with (acute) exacerbation (principal); Z20.822 Contact with and (suspected) exposure to COVID-19; J18.1 Lobar pneumonia, unspecified organism; E11.9 Type 2 diabetes mellitus without complications; F03.90 Unspecified dementia, unspecified severity, without behavioral disturbance, psychotic disturbance, mood disturbance, and anxiety; F17.200 Nicotine dependence, unspecified, uncomplicated; Z86.73 Personal history of transient ischemic attack (TIA), and cerebral infarction without residual deficits; Z79.4 Long term (current) use of insulin; Z79.899 Other long term (current) drug therapy
CPT/HCPCS: 36415; 71045; 80048; 82948; 83605; 83880; 84484; 85025; 85610; 85730; 87040; 87420; 87426; 87804; 93005; 94640; 96374; 99285; J2930; Q0092